=== PATIENT | female | born 1975 | race Caucasian/White ===

== ENCOUNTER 2019-03-15 21:53 | Observation (INO) ==
[2019-03-16] MEDS ORDERED: DEXTROSE 10% 250 ML BAG IV PRN (01:29)
[2019-03-16] MEDS ORDERED: GLUCAGON 1 MG VIAL IM PRN (01:29)
[2019-03-16] MEDS ORDERED: DEXTROSE 50% 25 GM/50 ML VIAL IV PRN (02:11)
[2019-03-16 03:01] LABS: INR 0.9; PT Patient Result 9.4 SECS (9.6-12.2); Partial Thromboplastin Time 23.8 SECS (20.8-36.0)
[2019-03-16] MEDS: NITROGLYCERIN SL 0.4 MG TABLET SL PRN ×2 (03:07→14:10)
[2019-03-16] MEDS: PROMETHAZINE 25 MG/1 ML VIAL IM PRN ×3 (03:07→20:44)
[2019-03-16 03:11] LABS: Troponin I < 0.015 NG/ML (0.00-0.045)
[2019-03-16 03:11] LABS: Albumin 3.4 G/DL (3.4-5.0); Bilirubin,Total 0.4 MG/DL (0.2-1.0); Osmolality,Calculated 279.4 MOS/KG (273-304); Risk Ratio 4.67; Total Protein 7.5 G/DL (6.4-8.3); VLDL CHOLESTEROL 42.4 MG/DL
[2019-03-16] MEDS: MORPHINE 4 MG/1 ML VIAL IV PRN ×3 (04:25→16:29)
[2019-03-16] MEDS: INSULIN LISPRO 100 UNIT/ML SUBCUT SCH (08:27)
[2019-03-16 08:52] LABS: Troponin I < 0.015 NG/ML (0.00-0.045)
[2019-03-16] MEDS ORDERED: CLOPIDOGREL 75 MG TABLET PO SCH (09:00)
[2019-03-16] MEDS ORDERED: ASPIRIN CHEW 81 MG TABLET PO SCH (09:00)
[2019-03-16] MEDS: ASPIRIN EC 81 MG TABLET PO SCH (09:09)
[2019-03-16] MEDS: COENZYME Q10 100 MG CAPSULE PO SCH (09:10)
[2019-03-16] MEDS: OMEGA 3 ACID ETHYL ESTERS 1 GM CAPSULE PO SCH ×2 (09:10→21:55)
[2019-03-16] MEDS: LEVOTHYROXINE 200 MCG TABLET PO SCH (09:12)
[2019-03-16] MEDS: SOTALOL 80 MG TABLET PO SCH ×2 (09:12→21:55)
[2019-03-16] MEDS: CLOPIDOGREL 75 MG TABLET PO SCH (09:13)
[2019-03-16] MEDS: FENOFIBRATE 160 MG TABLET PO SCH (09:13)
[2019-03-16] MEDS: SPIRONOLACTONE 25 MG TABLET PO SCH (09:13)
[2019-03-16] MEDS: PANTOPRAZOLE 40 MG TABLET PO SCH (09:14)
[2019-03-16 15:27] LABS: Barbiturates Screen,Urine Negative (Negative); Benzodiazepines Screen,Urine Negative (Negative); Cannabinoid Screen,Urine Negative (Negative); Opiate Screen,Urine Positive (Negative); Phencyclidine Screen,Urine Negative (Negative)
[2019-03-16 15:31] LABS: Troponin I < 0.015 NG/ML (0.00-0.045)
[2019-03-16] MEDS: FUROSEMIDE 40 MG/4 ML VIAL IV SCH (16:27)
[2019-03-16] MEDS: OSELTAMIVIR 75 MG CAPSULE PO SCH ×2 (16:27→21:55)
[2019-03-17] MEDS: MORPHINE 4 MG/1 ML VIAL IV PRN ×2 (00:45→09:23)
[2019-03-17 01:01] LABS: Troponin I < 0.015 NG/ML (0.00-0.045)
[2019-03-17 05:22] LABS: Basophils # 0.1 10*3/uL (0.0-0.2); Basophils % 0.6 % (0.0-0.8); Eosinophils # 0.4 10*3/uL (0.0-0.87); Eosinophils % 4.8 % (0.00-10.9); Hemoglobin 11.7 GM/DL (12.0-16.0); Immature Granulocytes % 0.2 %; Immature Granulocytes Absolute 0.02 #; Lymphocytes # 3.4 10*3/uL (1.4-4.0); Lymphocytes % 42.1 % (21.3-54.2); Mean Corpuscular HGB Conc 30.8 GM/DL (32-36); Mean Corpuscular Volume 82.3 FL (87-102); Mean Platelet Volume 9.9 FL (9.6-12.0); Monocytes % 11.7 % (1.7-12.7); NRBC # 0.02 10*3/uL; Neutrophils % 40.6 % (38.7-73.9); Platelet Count 552 T/CUMM (130-400); Red Blood Count 4.62 MC/CUMM (3.8-5.5); Red Cell Distribution Width 20.1 % (9.3-17.3); White Blood Count 8.2 T/CUMM (4-12)
[2019-03-17 05:37] LABS: Albumin 3.1 G/DL (3.4-5.0); Osmolality,Calculated 278.7 MOS/KG (273-304); Total Protein 7.1 G/DL (6.4-8.3)
[2019-03-17] MEDS: INSULIN LISPRO 100 UNIT/ML SUBCUT SCH ×2 (09:18→09:19)
[2019-03-17] MEDS: FUROSEMIDE 40 MG/4 ML VIAL IV SCH (09:19)
[2019-03-17] MEDS: SPIRONOLACTONE 25 MG TABLET PO SCH (09:21)
[2019-03-17] MEDS: SOTALOL 80 MG TABLET PO SCH (09:21)
[2019-03-17] MEDS: LEVOTHYROXINE 200 MCG TABLET PO SCH (09:21)
[2019-03-17] MEDS: COENZYME Q10 100 MG CAPSULE PO SCH (09:21)
[2019-03-17] MEDS: PANTOPRAZOLE 40 MG TABLET PO SCH (09:21)
[2019-03-17] MEDS: OSELTAMIVIR 75 MG CAPSULE PO SCH (09:21)
[2019-03-17] MEDS: FENOFIBRATE 160 MG TABLET PO SCH (09:21)
[2019-03-17] MEDS: CLOPIDOGREL 75 MG TABLET PO SCH (09:22)
[2019-03-17] MEDS: OMEGA 3 ACID ETHYL ESTERS 1 GM CAPSULE PO SCH (09:22)
[2019-03-17] MEDS: ASPIRIN EC 81 MG TABLET PO SCH (09:22)
[2019-03-17 12:00] VITALS: BP 110/67
== END 2019-03-17 14:30 | disposition home or self-care (01) ==
LOC: N.2W → SUATTDRO 03-16 00:02
PROVIDERS: ADMIT Internal Medicine; ATTEND Internal Medicine Cardiovascular Disease

== ENCOUNTER 2019-05-03 06:44 | Observation (INO) ==
[2019-05-03] MEDS ORDERED: ONDANSETRON 4 MG/2 ML VIAL IV STA (07:08)
[2019-05-03] MEDS ORDERED: NITROGLYCERIN 2% OINT 1 INCH/GM PACK TOP STA (07:08)
[2019-05-03] MEDS ORDERED: MORPHINE 4 MG/1 ML VIAL IV STA (07:08)
[2019-05-03] MEDS ORDERED: ASPIRIN 325 MG TABLET PO STA (07:08)
[2019-05-03 09:10] LABS: Basophils # 0.1 10*3/uL (0.0-0.2); Basophils % 0.8 % (0.0-0.8); Eosinophils # 0.4 10*3/uL (0.0-0.87); Eosinophils % 3.9 % (0.00-10.9); Hematocrit 35.3 VOL% (35.7-47.0); Hemoglobin 10.8 GM/DL (12.0-16.0); Immature Granulocytes % 0.7 %; Immature Granulocytes Absolute 0.08 #; Lymphocytes # 3.6 10*3/uL (1.4-4.0); Mean Corpuscular HGB Conc 30.6 GM/DL (32-36); Mean Corpuscular Volume 83.3 FL (87-102); Mean Platelet Volume 9.9 FL (9.6-12.0); Monocytes % 12.9 % (1.7-12.7); NRBC # 0.06 10*3/uL; Neutrophils % 49.7 % (38.7-73.9); Platelet Count 601 T/CUMM (130-400); Red Blood Count 4.24 MC/CUMM (3.8-5.5); Red Cell Distribution Width 19.3 % (9.3-17.3); White Blood Count 11.1 T/CUMM (4-12)
[2019-05-03 09:23] LABS: PT Patient Result 11.3 SECS (9.6-12.2); Partial Thromboplastin Time 27.6 SECS (20.8-36.0)
[2019-05-03 09:24] LABS: Alanine Aminotransferase 24 U/L (13-56); Albumin 3.4 G/DL (3.4-5.0); Alkaline Phosphatase 117 U/L (45-117); Aspartate Amino Transferase 19 U/L (0-37); Bilirubin,Total < 0.39 MG/DL (0.2-1.0); Blood Urea Nitrogen 20 MG/DL (7-18); Calcium 9.1 MG/DL (8.5-10.1); Estimated Glom Filtration Rate 85 ML/MIN; Glucose 94 MG/DL (74-106); Total Protein 7.3 G/DL (6.4-8.3)
[2019-05-03] MEDS ORDERED: POTASSIUM CHLORIDE 20 MEQ TABLET PO STA (09:32)
[2019-05-03] MEDS ORDERED: POTASSIUM CHLORIDE 20 MEQ TABLET PO ONE ×2 (09:33→10:05)
[2019-05-03] MEDS ORDERED: DEXTROSE 10% 250 ML BAG IV PRN (10:00)
[2019-05-03] MEDS ORDERED: GLUCAGON 1 MG VIAL IM PRN (10:00)
[2019-05-03] MEDS ORDERED: BISACODYL 5 MG TABLET PO PRN (10:00)
[2019-05-03] MEDS: SUCRALFATE 1 GM TABLET PO SCH ×3 (12:11→20:26)
[2019-05-03] MEDS: INSULIN LISPRO 100 UNIT/ML SUBCUT SCH ×3 (12:13→20:27)
[2019-05-03] MEDS: NITROGLYCERIN SL 0.4 MG TABLET SL PRN ×5 (12:29→21:56)
[2019-05-03 13:04] LABS: Risk Ratio 5.02; VLDL CHOLESTEROL 58.2 MG/DL
[2019-05-03 13:17] LABS: Barbiturates Screen,Urine Negative (Negative); Benzodiazepines Screen,Urine Positive (Negative); Cannabinoid Screen,Urine Negative (Negative); Opiate Screen,Urine Positive (Negative); Phencyclidine Screen,Urine Negative (Negative)
[2019-05-03] MEDS: ONDANSETRON 4 MG/2 ML VIAL IV PRN ×2 (14:59→21:44)
[2019-05-03 15:02] LABS: Troponin I < 0.015 NG/ML (0.00-0.045)
[2019-05-03] MEDS ORDERED: MORPHINE 4 MG/1 ML VIAL IV ONE (15:16)
[2019-05-03] MEDS ORDERED: WARFARIN 5 MG TABLET PO SCH (18:00)
[2019-05-03] MEDS ORDERED: diphenhydrAMINE CAP 25 MG CAPSULE PO PRN (20:10)
[2019-05-03] MEDS: OMEGA 3 ACID ETHYL ESTERS 1 GM CAPSULE PO SCH (20:25)
[2019-05-03] MEDS: SOTALOL 80 MG TABLET PO SCH (20:26)
[2019-05-03] MEDS: DIVALPROEX 500 MG TABLET PO SCH (20:26)
[2019-05-03] MEDS: PANTOPRAZOLE 40 MG TABLET PO SCH (20:26)
[2019-05-03] MEDS: RANOLAZINE 500 MG TABLET PO SCH (20:26)
[2019-05-03] MEDS ORDERED: METOPROLOL TARTRATE 25 MG TABLET PO SCH (21:00)
[2019-05-04] MEDS: NITROGLYCERIN SL 0.4 MG TABLET SL PRN ×2 (01:45→02:09)
[2019-05-04] MEDS: ONDANSETRON 4 MG/2 ML VIAL IV PRN (05:07)
[2019-05-04] MEDS ORDERED: ACETAMINOPHEN 500 MG TABLET PO PRN (05:23)
[2019-05-04] MEDS: DIVALPROEX 500 MG TABLET PO SCH (08:50)
[2019-05-04] MEDS: RANOLAZINE 500 MG TABLET PO SCH (08:50)
[2019-05-04] MEDS: SUCRALFATE 1 GM TABLET PO SCH ×2 (08:51→12:00)
[2019-05-04] MEDS: OMEGA 3 ACID ETHYL ESTERS 1 GM CAPSULE PO SCH (08:51)
[2019-05-04] MEDS: SOTALOL 80 MG TABLET PO SCH (08:51)
[2019-05-04] MEDS: PANTOPRAZOLE 40 MG TABLET PO SCH (08:54)
[2019-05-04] MEDS: INSULIN LISPRO 100 UNIT/ML SUBCUT SCH ×2 (08:55→11:57)
[2019-05-04] MEDS ORDERED: FENOFIBRATE 145 MG TABLET PO SCH (09:00)
[2019-05-04] MEDS ORDERED: LEVOTHYROXINE 200 MCG TABLET PO SCH (09:00)
[2019-05-04] MEDS ORDERED: ASPIRIN EC 81 MG TABLET PO SCH (09:00)
[2019-05-04] MEDS ORDERED: CLOPIDOGREL 75 MG TABLET PO SCH (09:00)
[2019-05-04] MEDS ORDERED: SPIRONOLACTONE 25 MG TABLET PO SCH (09:00)
[2019-05-04] MEDS ORDERED: PANTOPRAZOLE 40 MG TABLET PO SCH (09:00)
[2019-05-04 11:42] VITALS: BP 122/78
[2019-05-04] MEDS ORDERED: ISOSORBIDE MONONITRATE 30 MG TABLET PO SCH (14:36)
== END 2019-05-04 13:30 | disposition home or self-care (01) ==
LOC: N.ED 06:44 → N.EDINP 06:44 → SUATTDRO 10:00 → N.4E 10:51
PROVIDERS: ADMIT Internal Medicine; ATTEND Internal Medicine

== ENCOUNTER 2019-08-08 19:29 | Inpatient (IN) ==
[2019-08-08] MEDS: NITROGLYCERIN SL 0.4 MG TABLET SL PRN ×3 (20:24→20:59)
[2019-08-08 20:37] LABS: Basophils % 0.3 % (0.0-0.8); Eosinophils % 0.1 % (0.00-10.9); Hematocrit 34.7 VOL% (35.7-47.0); Hemoglobin 10.1 GM/DL (12.0-16.0); Immature Granulocytes % 0.9 %; Immature Granulocytes Absolute 0.14 #; Lymphocytes # 2.4 10*3/uL (1.4-4.0); Lymphocytes % 15.2 % (21.3-54.2); Mean Corpuscular HGB Conc 29.1 GM/DL (32-36); Mean Platelet Volume 9.7 FL (9.6-12.0); NRBC # 0.11 10*3/uL; Neutrophils % 78.5 % (38.7-73.9); Platelet Count 631 T/CUMM (130-400); Red Blood Count 4.39 MC/CUMM (3.8-5.5); Red Cell Distribution Width 20.9 % (9.3-17.3); White Blood Count 15.7 T/CUMM (4-12)
[2019-08-08 20:44] LABS: Alanine Aminotransferase 65 U/L (13-56); Albumin 3.7 G/DL (3.4-5.0); Alkaline Phosphatase 144 U/L (45-117); Aspartate Amino Transferase 65 U/L (0-37); Bilirubin,Total < 0.39 MG/DL (0.2-1.0); Blood Urea Nitrogen 18 MG/DL (7-18); Estimated Glom Filtration Rate 89 ML/MIN; Glucose 146 MG/DL (74-106); Osmolality,Calculated 274.1 MOS/KG (273-304); Total Protein 8.6 G/DL (6.4-8.3)
[2019-08-08 20:46] LABS: PT Patient Result 10.2 SECS (9.8-11.9)
[2019-08-08 22:53] LABS: Apearance,Urine CLEAR (Clear); Bilirubin,Urine Negative (Negative); Blood, Urine Negative (Negative); Glucose,Urine (UA) Negative (Negative); Ketones,Urine Negative (Negative); Nitrite,Urine Negative (Negative); Protein,Urine Negative; RBC,Urine <1 /HPF (0-4); Urine Color Colorless (Yellow); Urine Specific Gravity 1.005 (1.001-1.035); Urine Urobilinogen < 2.0 EU/DL (0.2-1.0)
[2019-08-08 23:01] LABS: Ferritin 14.7 ng/ml (8-252)
[2019-08-08] MEDS ORDERED: ONDANSETRON 4 MG/2 ML VIAL IV ONE (23:08)
[2019-08-09] MEDS ORDERED: FUROSEMIDE 40 MG/4 ML VIAL IV STA (00:07)
[2019-08-09] MEDS ORDERED: PIPERACILLIN/TAZOBACTAM 3,375 MG in SODIUM CHLORIDE 0.9% 100 ML IV STA (00:08)
[2019-08-09] MEDS ORDERED: NITROGLYCERIN 2% OINT 1 INCH/GM PACK TOP STA (00:09)
[2019-08-09] MEDS ORDERED: ACETAMINOPHEN 325 MG TABLET PO PRN (01:21)
[2019-08-09] MEDS ORDERED: DEXTROSE 10% 250 ML BAG IV PRN (01:21)
[2019-08-09] MEDS ORDERED: GLUCAGON 1 MG VIAL IM PRN (01:21)
[2019-08-09] MEDS ORDERED: DOCUSATE SODIUM 100 MG CAPSULE PO PRN (01:21)
[2019-08-09] MEDS: MORPHINE 4 MG/1 ML VIAL IV PRN ×4 (01:41→20:46)
[2019-08-09] MEDS: ENOXAPARIN 40 MG/0.4 ML SYRINGE SUBCUT SCH (01:41)
[2019-08-09] MEDS: VANCOMYCIN INJ 2,000 MG in SODIUM CHLORIDE 0.9% 500 ML IV SCH ×2 (02:02→15:22)
[2019-08-09] MEDS: ALBUTEROL INHALER 18 GM INH SCH ×4 (02:04→20:45)
[2019-08-09 04:20] LABS: Basophils # 0.1 10*3/uL (0.0-0.2); Basophils % 0.3 % (0.0-0.8); Eosinophils # 0.1 10*3/uL (0.0-0.87); Eosinophils % 0.3 % (0.00-10.9); Hematocrit 32.5 VOL% (35.7-47.0); Hemoglobin 9.5 GM/DL (12.0-16.0); Immature Granulocytes % 0.6 %; Immature Granulocytes Absolute 0.09 #; Lymphocytes # 3.4 10*3/uL (1.4-4.0); Lymphocytes % 22.4 % (21.3-54.2); Mean Corpuscular HGB Conc 29.2 GM/DL (32-36); Mean Corpuscular Volume 78.9 FL (87-102); Monocytes % 7.2 % (1.7-12.7); NRBC # 0.12 10*3/uL; Neutrophils % 69.2 % (38.7-73.9); Platelet Count 598 T/CUMM (130-400); Red Blood Count 4.12 MC/CUMM (3.8-5.5); Red Cell Distribution Width 19.9 % (9.3-17.3); White Blood Count 15.1 T/CUMM (4-12)
[2019-08-09 04:59] LABS: Albumin 3.6 G/DL (3.4-5.0); Bilirubin,Total 0.9 MG/DL (0.2-1.0); Calcium 8.6 MG/DL (8.5-10.1); Osmolality,Calculated 272.1 MOS/KG (273-304); Total Protein 8.1 G/DL (6.4-8.3)
[2019-08-09 05:49] LABS: Sedimentation Rate-Westergren 30 MM/HR (0-20)
[2019-08-09 06:57] LABS: % Iron Saturation 4.1 % (18-50)
[2019-08-09] MEDS: FUROSEMIDE 40 MG/4 ML VIAL IV SCH ×2 (08:01→16:55)
[2019-08-09] MEDS: INSULIN LISPRO 100 UNIT/ML SUBCUT SCH ×4 (08:01→20:02)
[2019-08-09] MEDS: PIPERACILLIN/TAZOBACTAM 3,375 MG in SODIUM CHLORIDE 0.9% 100 ML IV SCH ×2 (08:02→19:52)
[2019-08-09 12:19] LABS: Folate > 24.0 NG/ML (5.4-24.0); Vitamin B12 381 PG/ML (211-911)
[2019-08-09] MEDS: ZALEPLON 5 MG CAPSULE PO PRN (20:45)
[2019-08-10] MEDS: VANCOMYCIN INJ 2,000 MG in SODIUM CHLORIDE 0.9% 500 ML IV SCH (01:15)
[2019-08-10] MEDS: ALBUTEROL INHALER 18 GM INH SCH ×4 (01:16→20:55)
[2019-08-10] MEDS: MORPHINE 4 MG/1 ML VIAL IV PRN ×5 (01:47→20:55)
[2019-08-10] MEDS: ENOXAPARIN 40 MG/0.4 ML SYRINGE SUBCUT SCH (01:48)
[2019-08-10] MEDS: diphenhydrAMINE 50 MG/1 ML VIAL IV PRN ×2 (06:17→20:55)
[2019-08-10 07:21] LABS: Albumin 3.4 G/DL (3.4-5.0); Bilirubin,Total 0.4 MG/DL (0.2-1.0); Calcium 8.6 MG/DL (8.5-10.1); Osmolality,Calculated 281.4 MOS/KG (273-304); Total Protein 7.6 G/DL (6.4-8.3)
[2019-08-10 07:51] LABS: Basophils # 0.1 10*3/uL (0.0-0.2); Basophils % 0.6 % (0.0-0.8); Eosinophils # 0.5 10*3/uL (0.0-0.87); Hematocrit 33.2 VOL% (35.7-47.0); Hemoglobin 9.9 GM/DL (12.0-16.0); Immature Granulocytes % 0.5 %; Immature Granulocytes Absolute 0.06 #; Lymphocytes # 3.2 10*3/uL (1.4-4.0); Lymphocytes % 26.4 % (21.3-54.2); Mean Corpuscular HGB Conc 29.8 GM/DL (32-36); Mean Corpuscular Volume 78.5 FL (87-102); Mean Platelet Volume 9.9 FL (9.6-12.0); Monocytes % 9.6 % (1.7-12.7); NRBC # 0.17 10*3/uL; Neutrophils % 58.9 % (38.7-73.9); Platelet Count 584 T/CUMM (130-400); Red Blood Count 4.23 MC/CUMM (3.8-5.5); Red Cell Distribution Width 20.9 % (9.3-17.3)
[2019-08-10] MEDS: FUROSEMIDE 40 MG/4 ML VIAL IV SCH ×2 (08:27→16:43)
[2019-08-10] MEDS: POTASSIUM CHLORIDE 20 MEQ TABLET PO PRN ×4 (08:27→14:55)
[2019-08-10] MEDS: MULTIVITAMIN (BEROCCA) TABLET PO SCH (08:27)
[2019-08-10] MEDS: INSULIN LISPRO 100 UNIT/ML SUBCUT SCH ×4 (08:43→20:55)
[2019-08-10] MEDS: cefTRIAXone 2,000 MG in SYRINGE 1 EACH IV SCH (16:45)
[2019-08-10] MEDS: POTASSIUM CHLORIDE 10 MEQ TABLET PO SCH (20:55)
[2019-08-10] MEDS: PRAMIPEXOLE 0.25 MG TABLET PO SCH (22:07)
[2019-08-11] MEDS: ZALEPLON 5 MG CAPSULE PO PRN (00:45)
[2019-08-11] MEDS: ALBUTEROL INHALER 18 GM INH SCH ×4 (01:30→17:55)
[2019-08-11] MEDS: MORPHINE 4 MG/1 ML VIAL IV PRN ×4 (01:30→22:00)
[2019-08-11] MEDS: MULTIVITAMIN (BEROCCA) TABLET PO SCH (08:18)
[2019-08-11] MEDS: AZITHROMYCIN 250 MG TABLET PO SCH (08:18)
[2019-08-11] MEDS: POTASSIUM CHLORIDE 10 MEQ TABLET PO SCH ×2 (08:18→21:30)
[2019-08-11] MEDS: FUROSEMIDE 40 MG/4 ML VIAL IV SCH ×2 (08:19→16:37)
[2019-08-11] MEDS: ENOXAPARIN 40 MG/0.4 ML SYRINGE SUBCUT SCH (08:19)
[2019-08-11] MEDS: WARFARIN 5 MG TABLET PO SCH (08:21)
[2019-08-11] MEDS: INSULIN LISPRO 100 UNIT/ML SUBCUT SCH ×4 (11:54→21:30)
[2019-08-11] MEDS: diphenhydrAMINE 50 MG/1 ML VIAL IV PRN ×2 (12:19→21:57)
[2019-08-11] MEDS: cefTRIAXone 2,000 MG in SYRINGE 1 EACH IV SCH (12:19)
[2019-08-11] MEDS: PRAMIPEXOLE 0.25 MG TABLET PO SCH (21:30)
[2019-08-12] MEDS: ALBUTEROL INHALER 18 GM INH SCH ×4 (00:20→19:15)
[2019-08-12 06:22] LABS: INR 1.1; PT Patient Result 11.2 SECS (9.8-11.9)
[2019-08-12] MEDS: MORPHINE 4 MG/1 ML VIAL IV PRN ×2 (06:27→16:51)
[2019-08-12] MEDS: INSULIN LISPRO 100 UNIT/ML SUBCUT SCH ×4 (08:15→21:00)
[2019-08-12 08:33] LABS: Calcium 9.2 MG/DL (8.5-10.1); Osmolality,Calculated 270.1 MOS/KG (273-304)
[2019-08-12] MEDS: ENOXAPARIN 40 MG/0.4 ML SYRINGE SUBCUT SCH (11:38)
[2019-08-12] MEDS: MULTIVITAMIN (BEROCCA) TABLET PO SCH (11:38)
[2019-08-12] MEDS: AZITHROMYCIN 250 MG TABLET PO SCH (11:38)
[2019-08-12] MEDS: POTASSIUM CHLORIDE 10 MEQ TABLET PO SCH ×2 (11:38→21:00)
[2019-08-12] MEDS: WARFARIN 5 MG TABLET PO SCH (11:38)
[2019-08-12] MEDS: FUROSEMIDE 40 MG/4 ML VIAL IV SCH ×2 (13:34→17:42)
[2019-08-12] MEDS: cefTRIAXone 2,000 MG in SYRINGE 1 EACH IV SCH (13:35)
[2019-08-12] MEDS ORDERED: LEVOFLOXACIN INJ 750 MG in PREMIX 1 EACH IV SCH (15:00)
[2019-08-12] MEDS: LEVOFLOXACIN 750 MG TABLET PO SCH (18:47)
[2019-08-12] MEDS: PRAMIPEXOLE 0.25 MG TABLET PO SCH (21:00)
[2019-08-12] MEDS: ZALEPLON 5 MG CAPSULE PO PRN (21:00)
[2019-08-13] MEDS: ALBUTEROL INHALER 18 GM INH SCH ×4 (01:25→20:36)
[2019-08-13] MEDS ORDERED: MORPHINE 4 MG/1 ML VIAL IM ONE (04:40)
[2019-08-13 06:20] LABS: INR 1.2; PT Patient Result 12.4 SECS (9.8-11.9)
[2019-08-13] MEDS: FUROSEMIDE 40 MG/4 ML VIAL IV SCH ×2 (10:31→16:37)
[2019-08-13] MEDS: POTASSIUM CHLORIDE 10 MEQ TABLET PO SCH ×2 (10:32→20:37)
[2019-08-13] MEDS: ENOXAPARIN 40 MG/0.4 ML SYRINGE SUBCUT SCH (10:32)
[2019-08-13] MEDS: MULTIVITAMIN (BEROCCA) TABLET PO SCH (10:33)
[2019-08-13] MEDS: LEVOFLOXACIN 750 MG TABLET PO SCH (10:33)
[2019-08-13] MEDS: WARFARIN 5 MG TABLET PO SCH (10:34)
[2019-08-13] MEDS: INSULIN LISPRO 100 UNIT/ML SUBCUT SCH ×4 (10:34→20:50)
[2019-08-13] MEDS: ONDANSETRON 4 MG/2 ML VIAL IV PRN ×2 (12:54→20:44)
[2019-08-13] MEDS: NITROGLYCERIN SL 0.4 MG TABLET SL PRN ×3 (12:55→14:36)
[2019-08-13] MEDS ORDERED: NITROGLYCERIN SL 0.4 MG TABLET SL PRN (14:20)
[2019-08-13] MEDS: RANOLAZINE 500 MG TABLET PO SCH ×2 (14:44→20:36)
[2019-08-13] MEDS: SOTALOL 80 MG TABLET PO SCH ×2 (16:37→20:37)
[2019-08-13] MEDS: SUCRALFATE 1 GM TABLET PO SCH ×2 (16:37→20:41)
[2019-08-13] MEDS: SERTRALINE 50 MG TABLET PO SCH (20:36)
[2019-08-13] MEDS: PRAMIPEXOLE 0.25 MG TABLET PO SCH (20:36)
[2019-08-13] MEDS: MORPHINE 4 MG/1 ML VIAL IV PRN (20:41)
[2019-08-13] MEDS: diphenhydrAMINE 50 MG/1 ML VIAL IV PRN (20:47)
[2019-08-14] MEDS: ALBUTEROL INHALER 18 GM INH SCH ×4 (01:00→20:39)
[2019-08-14] MEDS: MORPHINE 4 MG/1 ML VIAL IV PRN ×3 (02:45→20:40)
[2019-08-14] MEDS: diphenhydrAMINE 50 MG/1 ML VIAL IV PRN ×2 (05:05→21:51)
[2019-08-14 05:59] LABS: INR 1.5; PT Patient Result 15.7 SECS (9.8-11.9)
[2019-08-14] MEDS: LEVOTHYROXINE 200 MCG TABLET PO SCH (06:22)
[2019-08-14] MEDS: LEVOTHYROXINE 25 MCG TABLET PO SCH (06:22)
[2019-08-14] MEDS: WARFARIN 5 MG TABLET PO SCH (10:00)
[2019-08-14] MEDS: SOTALOL 80 MG TABLET PO SCH ×2 (10:00→20:40)
[2019-08-14] MEDS: SUCRALFATE 1 GM TABLET PO SCH ×4 (10:00→20:39)
[2019-08-14] MEDS: FUROSEMIDE 40 MG/4 ML VIAL IV SCH ×2 (10:00→15:50)
[2019-08-14] MEDS: MULTIVITAMIN (BEROCCA) TABLET PO SCH (10:00)
[2019-08-14] MEDS: RANOLAZINE 500 MG TABLET PO SCH ×2 (10:00→20:40)
[2019-08-14] MEDS: LEVOFLOXACIN INJ 750 MG in PREMIX 1 EACH IV SCH (10:00)
[2019-08-14] MEDS: POTASSIUM CHLORIDE 10 MEQ TABLET PO SCH ×2 (10:00→20:40)
[2019-08-14] MEDS: DULoxetine 20 MG CAPSULE PO SCH (10:00)
[2019-08-14] MEDS: ENOXAPARIN 40 MG/0.4 ML SYRINGE SUBCUT SCH (10:00)
[2019-08-14] MEDS: INSULIN LISPRO 100 UNIT/ML SUBCUT SCH ×3 (11:50→20:46)
[2019-08-14] MEDS: ONDANSETRON 4 MG/2 ML VIAL IV PRN ×2 (12:46→20:43)
[2019-08-14] MEDS: SERTRALINE 50 MG TABLET PO SCH (20:39)
[2019-08-14] MEDS: PRAMIPEXOLE 0.25 MG TABLET PO SCH (20:39)
[2019-08-15] MEDS: ALBUTEROL INHALER 18 GM INH SCH ×4 (01:00→18:05)
[2019-08-15] MEDS: MORPHINE 4 MG/1 ML VIAL IV PRN ×2 (03:34→10:32)
[2019-08-15] MEDS: diphenhydrAMINE 50 MG/1 ML VIAL IV PRN ×2 (03:36→21:24)
[2019-08-15] MEDS: LEVOTHYROXINE 25 MCG TABLET PO SCH (06:29)
[2019-08-15] MEDS: LEVOTHYROXINE 200 MCG TABLET PO SCH (06:29)
[2019-08-15 06:31] LABS: INR 1.9; PT Patient Result 19.4 SECS (9.8-11.9)
[2019-08-15] MEDS: FUROSEMIDE 40 MG/4 ML VIAL IV SCH ×2 (10:17→15:45)
[2019-08-15] MEDS: POTASSIUM CHLORIDE 10 MEQ TABLET PO SCH ×2 (10:18→21:19)
[2019-08-15] MEDS: SOTALOL 80 MG TABLET PO SCH ×2 (10:18→21:19)
[2019-08-15] MEDS: RANOLAZINE 500 MG TABLET PO SCH ×2 (10:18→21:20)
[2019-08-15] MEDS: MULTIVITAMIN (BEROCCA) TABLET PO SCH (10:18)
[2019-08-15] MEDS: DULoxetine 20 MG CAPSULE PO SCH (10:18)
[2019-08-15] MEDS: ENOXAPARIN 40 MG/0.4 ML SYRINGE SUBCUT SCH (10:18)
[2019-08-15] MEDS: WARFARIN 5 MG TABLET PO SCH (10:19)
[2019-08-15] MEDS: LEVOFLOXACIN INJ 750 MG in PREMIX 1 EACH IV SCH (10:19)
[2019-08-15] MEDS: SUCRALFATE 1 GM TABLET PO SCH ×4 (10:19→21:19)
[2019-08-15] MEDS: INSULIN LISPRO 100 UNIT/ML SUBCUT SCH ×4 (10:21→21:19)
[2019-08-15] MEDS: ONDANSETRON 4 MG/2 ML VIAL IV PRN (10:32)
[2019-08-15] MEDS: PRAMIPEXOLE 0.25 MG TABLET PO SCH (21:19)
[2019-08-15] MEDS: SERTRALINE 50 MG TABLET PO SCH (21:20)
[2019-08-16] MEDS: ONDANSETRON 4 MG/2 ML VIAL IV PRN ×2 (00:28→10:08)
[2019-08-16] MEDS: MORPHINE 4 MG/1 ML VIAL IV PRN (00:43)
[2019-08-16] MEDS: ALBUTEROL INHALER 18 GM INH SCH ×2 (00:47→06:13)
[2019-08-16] MEDS: diphenhydrAMINE 50 MG/1 ML VIAL IV PRN (05:28)
[2019-08-16] MEDS: LEVOTHYROXINE 25 MCG TABLET PO SCH (06:13)
[2019-08-16] MEDS: LEVOTHYROXINE 200 MCG TABLET PO SCH (06:13)
[2019-08-16 07:16] LABS: Basophils # 0.1 10*3/uL (0.0-0.2); Basophils % 0.6 % (0.0-0.8); Eosinophils # 0.3 10*3/uL (0.0-0.87); Eosinophils % 2.9 % (0.00-10.9); Hemoglobin 10.5 GM/DL (12.0-16.0); Immature Granulocytes % 0.6 %; Immature Granulocytes Absolute 0.06 #; Lymphocytes # 2.7 10*3/uL (1.4-4.0); Lymphocytes % 25.2 % (21.3-54.2); Mean Corpuscular Volume 76.1 FL (87-102); Mean Platelet Volume 9.7 FL (9.6-12.0); Monocytes % 10.1 % (1.7-12.7); NRBC # 0.06 10*3/uL; Neutrophils % 60.6 % (38.7-73.9); Platelet Count 671 T/CUMM (130-400); Red Cell Distribution Width 20.6 % (9.3-17.3); White Blood Count 10.9 T/CUMM (4-12)
[2019-08-16 07:29] LABS: Calcium 9.6 MG/DL (8.5-10.1); Osmolality,Calculated 269.4 MOS/KG (273-304)
[2019-08-16 07:31] LABS: INR 2.4
[2019-08-16 07:32] LABS: PT Patient Result 24.5 SECS (9.8-11.9)
[2019-08-16] MEDS: POTASSIUM CHLORIDE 20 MEQ TABLET PO PRN ×3 (07:52→11:13)
[2019-08-16] MEDS: SUCRALFATE 1 GM TABLET PO SCH (07:53)
[2019-08-16] MEDS: INSULIN LISPRO 100 UNIT/ML SUBCUT SCH (08:02)
[2019-08-16] MEDS ORDERED: LEVOFLOXACIN 750 MG TABLET PO SCH (09:00)
[2019-08-16] MEDS: POTASSIUM CHLORIDE 10 MEQ TABLET PO SCH (09:21)
[2019-08-16] MEDS: DULoxetine 20 MG CAPSULE PO SCH (09:21)
[2019-08-16] MEDS: RANOLAZINE 500 MG TABLET PO SCH (09:21)
[2019-08-16] MEDS: SOTALOL 80 MG TABLET PO SCH (09:21)
[2019-08-16] MEDS: WARFARIN 5 MG TABLET PO SCH (09:21)
[2019-08-16] MEDS: MULTIVITAMIN (BEROCCA) TABLET PO SCH (09:21)
[2019-08-16] MEDS: ENOXAPARIN 40 MG/0.4 ML SYRINGE SUBCUT SCH (09:22)
[2019-08-16] MEDS: FUROSEMIDE 40 MG/4 ML VIAL IV SCH (09:22)
[2019-08-16] MEDS ORDERED: REGADENOSON 0.4 MG/5 ML SYRINGE IV ONE (09:39)
[2019-08-16 11:35] VITALS: BP 115/68
== END 2019-08-16 12:17 | disposition home or self-care (01) | DRG 291 ==
LOC: N.ED 19:29 → SUATTDRO 08-09 00:29 → N.EDINP 08-09 00:29 → N.2E 08-09 05:21 → N.3E 08-13 00:42
PROVIDERS: ADMIT Emergency Medicine; ATTEND Internal Medicine

== ENCOUNTER 2019-09-01 22:09 | Inpatient (IN) ==
[2019-09-01 22:42] LABS: Basophils % 0.1 % (0.0-0.8); Hemoglobin 9.7 GM/DL (12.0-16.0); Immature Granulocytes % 0.7 %; Immature Granulocytes Absolute 0.12 #; Lymphocytes # 2.8 10*3/uL (1.4-4.0); Lymphocytes % 17.1 % (21.3-54.2); Mean Corpuscular HGB Conc 29.4 GM/DL (32-36); Mean Corpuscular Volume 79.1 FL (87-102); Mean Platelet Volume 9.7 FL (9.6-12.0); Monocytes % 10.3 % (1.7-12.7); NRBC # 0.13 10*3/uL; Neutrophils % 71.8 % (38.7-73.9); Platelet Count 545 T/CUMM (130-400); Red Blood Count 4.17 MC/CUMM (3.8-5.5); Red Cell Distribution Width 21.7 % (9.3-17.3)
[2019-09-01 23:08] LABS: Albumin 3.4 G/DL (3.4-5.0); Bilirubin,Total 0.4 MG/DL (0.2-1.0); Calcium 8.8 MG/DL (8.5-10.1); Osmolality,Calculated 278.8 MOS/KG (273-304); Total Protein 7.5 G/DL (6.4-8.3)
[2019-09-02 00:19] LABS: INR 0.9; PT Patient Result 9.8 SECS (9.8-11.9)
[2019-09-02] MEDS ORDERED: FUROSEMIDE 100 MG/10 ML VIAL IV STA (00:21)
[2019-09-02] MEDS ORDERED: NITROGLYCERIN SL 0.4 MG TABLET SL ONE (00:23)
[2019-09-02] MEDS: NITROGLYCERIN SL 0.4 MG TABLET SL PRN ×6 (00:42→22:42)
[2019-09-02] MEDS ORDERED: SODIUM CHLORIDE 0.9% 500 ML IV STA (02:14)
[2019-09-02 02:32] LABS: Apearance,Urine Slightly Hazy (Clear); Bacteria,Urine Occasional /HPF (Few); Bilirubin,Urine Negative (Negative); Blood, Urine Negative (Negative); Glucose,Urine (UA) Negative (Negative); Hyaline Casts,Urine 3 /LPF (0-3); Ketones,Urine Negative (Negative); Nitrite,Urine Negative (Negative); Protein,Urine Negative; RBC,Urine <1 /HPF (0-4); Squamous Epithelial Cell,Urine Occasional /HPF (0-10); Urine Color Straw (Yellow); Urine Specific Gravity 1.006 (1.001-1.035); Urine Urobilinogen < 2.0 EU/DL (0.2-1.0); WBC,Urine <1 /HPF (0-6)
[2019-09-02] MEDS ORDERED: ACETAMINOPHEN 325 MG TABLET PO PRN (02:38)
[2019-09-02] MEDS ORDERED: hydrALAZINE 20 MG/1 ML VIAL IV PRN (02:38)
[2019-09-02] MEDS ORDERED: DEXTROSE 50% 25 GM/50 ML VIAL IV PRN (02:38)
[2019-09-02] MEDS ORDERED: GLUCAGON 1 MG VIAL IM PRN (02:38)
[2019-09-02] MEDS ORDERED: guaiFENesin/DM ER 600-30 MG TABLET PO PRN (02:38)
[2019-09-02] MEDS ORDERED: NICOTINE 21 MG/24 HR PATCH TRANSDERM PRN (02:38)
[2019-09-02] MEDS ORDERED: VANCOMYCIN INJ 2,000 MG in SODIUM CHLORIDE 0.9% 500 ML IV SCH (04:00)
[2019-09-02] MEDS: VANCOMYCIN INJ 1,750 MG in SODIUM CHLORIDE 0.9% 500 ML IV SCH ×2 (04:27→19:55)
[2019-09-02] MEDS: ONDANSETRON 4 MG/2 ML VIAL IV PRN ×2 (04:31→12:41)
[2019-09-02] MEDS: MORPHINE 4 MG/1 ML VIAL IV PRN ×2 (04:43→16:55)
[2019-09-02] MEDS: PIPERACILLIN/TAZOBACTAM 3,375 MG in SODIUM CHLORIDE 0.9% 100 ML IV SCH ×2 (07:46→15:23)
[2019-09-02] MEDS ORDERED: FUROSEMIDE 20 MG TABLET PO PRN (08:22)
[2019-09-02] MEDS ORDERED: ACETAMINOPHEN 500 MG TABLET PO PRN (08:22)
[2019-09-02] MEDS ORDERED: metOLazone 5 MG TABLET PO PRN (08:22)
[2019-09-02] MEDS ORDERED: FUROSEMIDE 40 MG/4 ML VIAL IV SCH (09:00)
[2019-09-02] MEDS: FUROSEMIDE 40 MG/4 ML VIAL IV SCH ×2 (09:45→21:44)
[2019-09-02] MEDS: PANTOPRAZOLE 40 MG TABLET PO SCH ×2 (09:45→21:45)
[2019-09-02] MEDS ORDERED: ALBUTEROL/IPRATROPIUM 3 ML NEB RESP TX PRN (11:05)
[2019-09-02 11:16] LABS: Barbiturates Screen,Urine Negative (Negative); Benzodiazepines Screen,Urine Negative (Negative); Cannabinoid Screen,Urine Negative (Negative); Opiate Screen,Urine Negative (Negative); Phencyclidine Screen,Urine Negative (Negative)
[2019-09-02] MEDS ORDERED: ALPRAZolam 0.5 MG TABLET PO ONE (11:16)
[2019-09-02] MEDS: BUMETANIDE 1 MG TABLET PO SCH ×2 (11:20→21:47)
[2019-09-02] MEDS: LEVOTHYROXINE 200 MCG TABLET PO SCH (11:20)
[2019-09-02] MEDS: SPIRONOLACTONE 25 MG TABLET PO SCH (11:20)
[2019-09-02] MEDS: ASPIRIN EC 81 MG TABLET PO SCH (11:20)
[2019-09-02] MEDS: DULoxetine 20 MG CAPSULE PO SCH (11:20)
[2019-09-02] MEDS: RANOLAZINE 500 MG TABLET PO SCH ×2 (11:20→21:46)
[2019-09-02] MEDS: LEVOTHYROXINE 25 MCG TABLET PO SCH (11:20)
[2019-09-02 11:27] LABS: Calcium 8.8 MG/DL (8.5-10.1); Osmolality,Calculated 282.3 MOS/KG (273-304)
[2019-09-02] MEDS: SUCRALFATE 1 GM TABLET PO SCH ×3 (11:28→21:46)
[2019-09-02 11:44] LABS: Basophils % 0.3 % (0.0-0.8); Eosinophils # 0.1 10*3/uL (0.0-0.87); Eosinophils % 0.3 % (0.00-10.9); Hematocrit 33.5 VOL% (35.7-47.0); Hemoglobin 9.9 GM/DL (12.0-16.0); Immature Granulocytes % 0.6 %; Immature Granulocytes Absolute 0.09 #; Lymphocytes # 2.9 10*3/uL (1.4-4.0); Lymphocytes % 18.7 % (21.3-54.2); Mean Corpuscular HGB Conc 29.6 GM/DL (32-36); Mean Corpuscular Volume 77.2 FL (87-102); Mean Platelet Volume 9.9 FL (9.6-12.0); Monocytes % 10.8 % (1.7-12.7); NRBC # 0.21 10*3/uL; Neutrophils % 69.3 % (38.7-73.9); Platelet Count 532 T/CUMM (130-400); Red Blood Count 4.34 MC/CUMM (3.8-5.5); Red Cell Distribution Width 21.6 % (9.3-17.3); White Blood Count 15.5 T/CUMM (4-12)
[2019-09-02] MEDS: POTASSIUM CHLORIDE 20 MEQ/15 ML UDCUP PO SCH (12:20)
[2019-09-02] MEDS: SOTALOL 80 MG TABLET PO SCH ×2 (12:20→21:44)
[2019-09-02] MEDS ORDERED: POTASSIUM CHLORIDE 20 MEQ TABLET PO ONE (13:30)
[2019-09-02] MEDS ORDERED: PIPERACILLIN/TAZOBACTAM 3,375 MG VIAL IV ONE (15:21)
[2019-09-02] MEDS ORDERED: SODIUM CHLORIDE 0.9% 100 ML IV ONE (15:22)
[2019-09-02] MEDS: SERTRALINE 50 MG TABLET PO SCH ×2 (16:54→21:44)
[2019-09-02] MEDS: APIXABAN 2.5 MG TABLET PO SCH ×2 (16:55→21:45)
[2019-09-02] MEDS: busPIRone 5 MG TABLET PO SCH ×2 (16:55→21:46)
[2019-09-02] MEDS ORDERED: diphenhydrAMINE CAP 25 MG CAPSULE PO PRN (17:40)
[2019-09-02] MEDS ORDERED: WARFARIN 5 MG TABLET PO SCH (18:00)
[2019-09-02] MEDS ORDERED: PRAMIPEXOLE 1 MG TABLET PO SCH (21:00)
[2019-09-02] MEDS ORDERED: diphenhydrAMINE 50 MG/1 ML VIAL IV SCH (22:00)
[2019-09-03] MEDS: PIPERACILLIN/TAZOBACTAM 3,375 MG in SODIUM CHLORIDE 0.9% 100 ML IV SCH ×2 (01:03→09:41)
[2019-09-03] MEDS: MORPHINE 4 MG/1 ML VIAL IV PRN ×2 (01:56→06:43)
[2019-09-03] MEDS ORDERED: diphenhydrAMINE 50 MG/1 ML VIAL IV SCH (06:00)
[2019-09-03] MEDS: VANCOMYCIN INJ 1,750 MG in SODIUM CHLORIDE 0.9% 500 ML IV SCH (06:43)
[2019-09-03 07:04] LABS: Basophils % 0.4 % (0.0-0.8); Eosinophils # 0.2 10*3/uL (0.0-0.87); Eosinophils % 1.8 % (0.00-10.9); Hematocrit 30.8 VOL% (35.7-47.0); Immature Granulocytes % 1.1 %; Immature Granulocytes Absolute 0.12 #; Lymphocytes # 3.1 10*3/uL (1.4-4.0); Lymphocytes % 27.7 % (21.3-54.2); Mean Corpuscular HGB Conc 29.2 GM/DL (32-36); Mean Corpuscular Volume 78.8 FL (87-102); Mean Platelet Volume 9.6 FL (9.6-12.0); Monocytes % 11.3 % (1.7-12.7); Neutrophils % 57.7 % (38.7-73.9); Platelet Count 502 T/CUMM (130-400); Red Blood Count 3.91 MC/CUMM (3.8-5.5); Red Cell Distribution Width 21.1 % (9.3-17.3); White Blood Count 11.2 T/CUMM (4-12)
[2019-09-03 07:29] LABS: Calcium 8.4 MG/DL (8.5-10.1); Osmolality,Calculated 278.7 MOS/KG (273-304); Total Protein 6.9 G/DL (6.4-8.3)
[2019-09-03 07:59] VITALS: BP 119/73
[2019-09-03] MEDS: SOTALOL 80 MG TABLET PO SCH (09:32)
[2019-09-03] MEDS: BUMETANIDE 1 MG TABLET PO SCH (09:33)
[2019-09-03] MEDS: PANTOPRAZOLE 40 MG TABLET PO SCH (09:33)
[2019-09-03] MEDS: DULoxetine 20 MG CAPSULE PO SCH (09:33)
[2019-09-03] MEDS: SERTRALINE 50 MG TABLET PO SCH (09:33)
[2019-09-03] MEDS: ASPIRIN EC 81 MG TABLET PO SCH (09:34)
[2019-09-03] MEDS: RANOLAZINE 500 MG TABLET PO SCH (09:34)
[2019-09-03] MEDS: SUCRALFATE 1 GM TABLET PO SCH ×2 (09:34→11:57)
[2019-09-03] MEDS: SPIRONOLACTONE 25 MG TABLET PO SCH (09:34)
[2019-09-03] MEDS: LEVOTHYROXINE 25 MCG TABLET PO SCH (09:34)
[2019-09-03] MEDS: busPIRone 5 MG TABLET PO SCH (09:34)
[2019-09-03] MEDS: APIXABAN 2.5 MG TABLET PO SCH (09:35)
[2019-09-03] MEDS: POTASSIUM CHLORIDE 20 MEQ/15 ML UDCUP PO SCH (09:35)
[2019-09-03] MEDS: FUROSEMIDE 40 MG/4 ML VIAL IV SCH (09:36)
[2019-09-03] MEDS: LEVOTHYROXINE 200 MCG TABLET PO SCH (09:40)
== END 2019-09-03 12:13 | disposition home or self-care (01) | DRG 291 ==
LOC: N.ED 22:09 → N.EDINP 09-02 02:40 → N.TELES 09-02 15:45
PROVIDERS: ADMIT Hospitalist; ATTEND Hospitalist

== ENCOUNTER 2019-09-05 15:50 | Observation (INO) ==
[2019-09-05 17:06] LABS: Apearance,Urine CLEAR (Clear); Bilirubin,Urine Negative (Negative); Blood, Urine Negative (Negative); Glucose,Urine (UA) Negative (Negative); Ketones,Urine Negative (Negative); Nitrite,Urine Negative (Negative); Protein,Urine Negative; RBC,Urine <1 /HPF (0-4); Squamous Epithelial Cell,Urine Occasional /HPF (0-10); Urine Color Colorless (Yellow); Urine Specific Gravity 1.005 (1.001-1.035); Urine Urobilinogen < 2.0 EU/DL (0.2-1.0); WBC,Urine 1 /HPF (0-6)
[2019-09-05 17:58] LABS: Basophils # 0.1 10*3/uL (0.0-0.2); Basophils % 0.4 % (0.0-0.8); Eosinophils # 0.2 10*3/uL (0.0-0.87); Eosinophils % 1.2 % (0.00-10.9); Hematocrit 31.6 VOL% (35.7-47.0); Hemoglobin 9.3 GM/DL (12.0-16.0); Immature Granulocytes % 0.7 %; Immature Granulocytes Absolute 0.09 #; Lymphocytes # 3.1 10*3/uL (1.4-4.0); Lymphocytes % 22.8 % (21.3-54.2); Mean Corpuscular HGB Conc 29.4 GM/DL (32-36); Mean Corpuscular Volume 77.1 FL (87-102); Mean Platelet Volume 9.4 FL (9.6-12.0); Monocytes % 8.9 % (1.7-12.7); NRBC # 0.54 10*3/uL; Platelet Count 518 T/CUMM (130-400); Red Cell Distribution Width 21.2 % (9.3-17.3); White Blood Count 13.6 T/CUMM (4-12)
[2019-09-05 18:23] LABS: Albumin 3.3 G/DL (3.4-5.0); Bilirubin,Total 0.8 MG/DL (0.2-1.0); Calcium 8.9 MG/DL (8.5-10.1); Osmolality,Calculated 275.8 MOS/KG (273-304); Total Protein 7.2 G/DL (6.4-8.3)
[2019-09-05 18:24] LABS: Ferritin 15.3 ng/ml (8-252)
[2019-09-05] MEDS ORDERED: FUROSEMIDE 40 MG/4 ML VIAL IV STA (18:43)
[2019-09-05 19:06] LABS: INR 1.2; PT Patient Result 12.7 SECS (9.8-11.9)
[2019-09-05] MEDS ORDERED: FUROSEMIDE 20 MG/2 ML VIAL IV STA (21:19)
[2019-09-05] MEDS ORDERED: DEXTROSE 10% 250 ML BAG IV PRN (21:21)
[2019-09-05] MEDS ORDERED: ACETAMINOPHEN 325 MG TABLET PO PRN (21:21)
[2019-09-05] MEDS ORDERED: GLUCAGON 1 MG VIAL IM PRN (21:21)
[2019-09-05] MEDS ORDERED: ONDANSETRON 4 MG/2 ML VIAL IV PRN (21:21)
[2019-09-05] MEDS ORDERED: MAGNESIUM SULF RIDER 4 GM in PREMIX 1 EACH IV PRN (22:03)
[2019-09-05] MEDS ORDERED: MAGNESIUM SULF RIDER 2 GM in PREMIX 1 EACH IV PRN (22:03)
[2019-09-05] MEDS ORDERED: POTASSIUM CHLORIDE 20 MEQ TABLET PO PRN (22:03)
[2019-09-05] MEDS ORDERED: POTASSIUM CHLORIDE 20 MEQ TABLET PO STA ×2 (22:04→22:13)
[2019-09-05] MEDS ORDERED: NITROGLYCERIN SL 0.4 MG TABLET SL PRN (22:05)
[2019-09-05] MEDS: PANTOPRAZOLE 40 MG TABLET PO SCH (23:10)
[2019-09-05] MEDS: SOTALOL 80 MG TABLET PO SCH (23:13)
[2019-09-06] MEDS: PIPERACILLIN/TAZOBACTAM 3,375 MG in SODIUM CHLORIDE 0.9% 100 ML IV SCH ×3 (00:12→20:47)
[2019-09-06] MEDS ORDERED: diphenhydrAMINE CAP 25 MG CAPSULE PO PRN (05:15)
[2019-09-06 05:35] LABS: Calcium 9.6 MG/DL (8.5-10.1); Osmolality,Calculated 267.4 MOS/KG (273-304)
[2019-09-06 06:42] LABS: Basophils # 0.1 10*3/uL (0.0-0.2); Basophils % 0.4 % (0.0-0.8); Eosinophils # 0.3 10*3/uL (0.0-0.87); Eosinophils % 1.8 % (0.00-10.9); Hematocrit 34.2 VOL% (35.7-47.0); Hemoglobin 10.1 GM/DL (12.0-16.0); Immature Granulocytes % 0.6 %; Immature Granulocytes Absolute 0.08 #; Lymphocytes # 2.8 10*3/uL (1.4-4.0); Lymphocytes % 20.8 % (21.3-54.2); Mean Corpuscular HGB Conc 29.5 GM/DL (32-36); Mean Platelet Volume 9.9 FL (9.6-12.0); Monocytes % 8.8 % (1.7-12.7); NRBC # 0.58 10*3/uL; Neutrophils % 67.6 % (38.7-73.9); Platelet Count 568 T/CUMM (130-400); Red Blood Count 4.44 MC/CUMM (3.8-5.5); Red Cell Distribution Width 21.1 % (9.3-17.3); White Blood Count 13.6 T/CUMM (4-12)
[2019-09-06] MEDS ORDERED: POTASSIUM CHLORIDE 20 MEQ TABLET PO STA (07:44)
[2019-09-06] MEDS: LEVOTHYROXINE 25 MCG TABLET PO SCH (09:29)
[2019-09-06] MEDS: SUCRALFATE 1 GM TABLET PO SCH ×4 (09:29→20:50)
[2019-09-06] MEDS: APIXABAN 2.5 MG TABLET PO SCH ×2 (09:31→20:49)
[2019-09-06] MEDS: SPIRONOLACTONE 25 MG TABLET PO SCH (09:31)
[2019-09-06] MEDS: busPIRone 5 MG TABLET PO SCH ×3 (09:31→20:49)
[2019-09-06] MEDS: SERTRALINE 25 MG TABLET PO SCH ×2 (09:32→20:49)
[2019-09-06] MEDS: RANOLAZINE 500 MG TABLET PO SCH ×2 (09:32→20:50)
[2019-09-06] MEDS: LEVOTHYROXINE 200 MCG TABLET PO SCH (09:33)
[2019-09-06] MEDS: INSULIN LISPRO 100 UNIT/ML SUBCUT SCH ×3 (11:39→20:48)
[2019-09-06] MEDS: SOTALOL 80 MG TABLET PO SCH ×2 (11:49→20:50)
[2019-09-06] MEDS: POTASSIUM CHLORIDE 20 MEQ TABLET PO SCH ×3 (11:49→20:50)
[2019-09-06] MEDS: FUROSEMIDE 40 MG/4 ML VIAL IV SCH ×2 (11:49→16:45)
[2019-09-06] MEDS: ASPIRIN EC 81 MG TABLET PO SCH (11:49)
[2019-09-06] MEDS: PANTOPRAZOLE 40 MG TABLET PO SCH ×2 (11:49→20:49)
[2019-09-06] MEDS: GABAPENTIN 300 MG CAPSULE PO SCH ×2 (15:50→20:49)
[2019-09-06] MEDS: ALBUTEROL INHALER 18 GM INH SCH (20:00)
[2019-09-06] MEDS ORDERED: PRAMIPEXOLE 1 MG TABLET PO SCH (21:00)
[2019-09-07] MEDS: ALBUTEROL INHALER 18 GM INH SCH ×2 (01:02→06:00)
[2019-09-07] MEDS: LEVOTHYROXINE 200 MCG TABLET PO SCH (05:31)
[2019-09-07] MEDS: LEVOTHYROXINE 25 MCG TABLET PO SCH (05:31)
[2019-09-07] MEDS: PIPERACILLIN/TAZOBACTAM 3,375 MG in SODIUM CHLORIDE 0.9% 100 ML IV SCH (05:35)
[2019-09-07 06:32] LABS: Osmolality,Calculated 272.2 MOS/KG (273-304)
[2019-09-07] MEDS: INSULIN LISPRO 100 UNIT/ML SUBCUT SCH (07:21)
[2019-09-07] MEDS: RANOLAZINE 500 MG TABLET PO SCH (08:27)
[2019-09-07] MEDS: POTASSIUM CHLORIDE 20 MEQ TABLET PO SCH (08:27)
[2019-09-07] MEDS: GABAPENTIN 300 MG CAPSULE PO SCH (08:27)
[2019-09-07] MEDS: SERTRALINE 25 MG TABLET PO SCH (08:27)
[2019-09-07] MEDS: ASPIRIN EC 81 MG TABLET PO SCH (08:27)
[2019-09-07] MEDS: busPIRone 5 MG TABLET PO SCH (08:27)
[2019-09-07] MEDS: SOTALOL 80 MG TABLET PO SCH (08:28)
[2019-09-07] MEDS: APIXABAN 2.5 MG TABLET PO SCH (08:28)
[2019-09-07] MEDS: SPIRONOLACTONE 25 MG TABLET PO SCH (08:29)
[2019-09-07] MEDS: FUROSEMIDE 40 MG/4 ML VIAL IV SCH ×2 (08:29→10:10)
[2019-09-07] MEDS: PANTOPRAZOLE 40 MG TABLET PO SCH (08:29)
[2019-09-07] MEDS: SUCRALFATE 1 GM TABLET PO SCH ×2 (08:29→11:46)
[2019-09-07 08:56] VITALS: BP 126/59
[2019-09-07 10:14] LABS: Basophils # 0.1 10*3/uL (0.0-0.2); Basophils % 0.5 % (0.0-0.8); Eosinophils # 0.4 10*3/uL (0.0-0.87); Eosinophils % 3.1 % (0.00-10.9); Hematocrit 33.3 VOL% (35.7-47.0); Hemoglobin 10.1 GM/DL (12.0-16.0); Immature Granulocytes % 0.7 %; Immature Granulocytes Absolute 0.09 #; Lymphocytes # 2.8 10*3/uL (1.4-4.0); Lymphocytes % 22.7 % (21.3-54.2); Mean Corpuscular HGB Conc 30.3 GM/DL (32-36); Mean Corpuscular Volume 76.2 FL (87-102); Mean Platelet Volume 10.1 FL (9.6-12.0); Monocytes % 10.3 % (1.7-12.7); NRBC # 0.63 10*3/uL; Neutrophils % 62.7 % (38.7-73.9); Platelet Count 554 T/CUMM (130-400); Red Blood Count 4.37 MC/CUMM (3.8-5.5); Red Cell Distribution Width 21.3 % (9.3-17.3); White Blood Count 12.4 T/CUMM (4-12)
== END 2019-09-07 13:24 | disposition home or self-care (01) ==
LOC: N.EDINP 15:50 → N.ED 15:50 → N.2E 09-06 08:36
PROVIDERS: ADMIT Internal Medicine; ATTEND Internal Medicine

== ENCOUNTER 2020-01-08 15:08 | Observation (INO) ==
[2020-01-08 16:10] LABS: Albumin 3.6 G/DL (3.4-5.0); Bilirubin,Total 0.4 MG/DL (0.2-1.0); Calcium 9.4 MG/DL (8.5-10.1)
[2020-01-08] MEDS ORDERED: FUROSEMIDE 100 MG/10 ML VIAL IV STA (16:24)
[2020-01-08 16:31] LABS: Basophils % 0.3 % (0.0-0.8); Eosinophils % 0.3 % (0.00-10.9); Hematocrit 40.6 VOL% (35.7-47.0); Hemoglobin 13.1 GM/DL (12.0-16.0); Immature Granulocytes % 0.8 %; Immature Granulocytes Absolute 0.11 #; Lymphocytes # 2.6 10*3/uL (1.4-4.0); Lymphocytes % 19.5 % (21.3-54.2); Mean Corpuscular HGB Conc 32.3 GM/DL (32-36); Mean Corpuscular Volume 88.3 FL (87-102); Mean Platelet Volume 9.9 FL (9.6-12.0); Monocytes % 7.3 % (1.7-12.7); NRBC # 0.02 10*3/uL; Neutrophils % 71.8 % (38.7-73.9); Platelet Count 393 T/CUMM (130-400); Red Cell Distribution Width 21.6 % (9.3-17.3); White Blood Count 13.2 T/CUMM (4-12)
[2020-01-08] MEDS ORDERED: HEPARIN LOCK FLUSH 500 UNIT/5 ML SYRINGE IV ONE (17:16)
[2020-01-08] MEDS ORDERED: DEXTROSE 50% 25 GM/50 ML VIAL IV PRN ×2 (18:46→20:09)
[2020-01-08] MEDS ORDERED: LACTULOSE 20 GM/30 ML UDCUP PO PRN (18:46)
[2020-01-08] MEDS ORDERED: ONDANSETRON 4 MG/2 ML VIAL IV PRN (18:46)
[2020-01-08] MEDS ORDERED: ACETAMINOPHEN 325 MG TABLET PO PRN (18:46)
[2020-01-08] MEDS ORDERED: DOCUSATE SODIUM 100 MG CAPSULE PO PRN (18:46)
[2020-01-08] MEDS ORDERED: ALUMINUM/MAGNES/SIMETH MAX STR 30 ML UDCUP PO PRN (18:46)
[2020-01-08] MEDS ORDERED: GLUCAGON 1 MG VIAL IM PRN ×2 (18:46→20:09)
[2020-01-08] MEDS ORDERED: MORPHINE 4 MG/1 ML VIAL IV PRN (18:46)
[2020-01-08] MEDS ORDERED: NICOTINE 21 MG/24 HR PATCH TRANSDERM PRN (18:46)
[2020-01-08] MEDS ORDERED: SIMETHICONE CHEW 125 MG TABLET PO PRN (18:46)
[2020-01-08] MEDS ORDERED: guaiFENesin/DM ER 600-30 MG TABLET PO PRN (18:46)
[2020-01-08] MEDS ORDERED: NITROGLYCERIN SL 0.4 MG TABLET SL PRN (19:15)
[2020-01-08] MEDS ORDERED: metOLazone 5 MG TABLET PO PRN (19:15)
[2020-01-08] MEDS: ALBUTEROL 2.5 MG/3 ML NEB RESP TX SCH (20:00)
[2020-01-08] MEDS: BUMETANIDE 1 MG TABLET PO SCH (22:44)
[2020-01-08] MEDS: PRAMIPEXOLE 1 MG TABLET PO SCH (22:44)
[2020-01-08] MEDS: POTASSIUM CHLORIDE 20 MEQ TABLET PO SCH (22:45)
[2020-01-08] MEDS: GABAPENTIN 400 MG CAPSULE PO SCH (22:45)
[2020-01-08] MEDS: RANOLAZINE 500 MG TABLET PO SCH (22:45)
[2020-01-08] MEDS: SPIRONOLACTONE 25 MG TABLET PO SCH (22:46)
[2020-01-08] MEDS: FUROSEMIDE 80 MG TABLET PO SCH (22:47)
[2020-01-08] MEDS: APIXABAN 2.5 MG TABLET PO SCH (22:47)
[2020-01-08] MEDS: SOTALOL 80 MG TABLET PO SCH (22:47)
[2020-01-08] MEDS: ZALEPLON 5 MG CAPSULE PO PRN (22:58)
[2020-01-08] MEDS: INSULIN LISPRO 100 UNIT/ML SUBCUT SCH (23:32)
[2020-01-09] MEDS: ALBUTEROL 2.5 MG/3 ML NEB RESP TX SCH ×4 (02:35→19:29)
[2020-01-09 06:05] LABS: Basophils # 0.1 10*3/uL (0.0-0.2); Basophils % 0.5 % (0.0-0.8); Eosinophils # 0.2 10*3/uL (0.0-0.87); Eosinophils % 1.6 % (0.00-10.9); Hematocrit 42.4 VOL% (35.7-47.0); Hemoglobin 13.6 GM/DL (12.0-16.0); Immature Granulocytes Absolute 0.11 #; Lymphocytes # 2.5 10*3/uL (1.4-4.0); Lymphocytes % 23.2 % (21.3-54.2); Mean Corpuscular HGB Conc 32.1 GM/DL (32-36); Mean Platelet Volume 10.5 FL (9.6-12.0); Monocytes % 9.5 % (1.7-12.7); NRBC # 0.02 10*3/uL; Neutrophils % 64.2 % (38.7-73.9); Platelet Count 375 T/CUMM (130-400); Red Blood Count 4.82 MC/CUMM (3.8-5.5); Red Cell Distribution Width 21.9 % (9.3-17.3)
[2020-01-09] MEDS: LEVOTHYROXINE 25 MCG TABLET PO SCH (06:33)
[2020-01-09] MEDS: LEVOTHYROXINE 200 MCG TABLET PO SCH (06:33)
[2020-01-09 06:35] LABS: Calcium 9.2 MG/DL (8.5-10.1); Osmolality,Calculated 281.5 MOS/KG (273-304); Risk Ratio 3.69; Thyroid Stimulating Hormone 6.31 uIU/ml (0.358-3.74); VLDL CHOLESTEROL 47.8 MG/DL
[2020-01-09 08:19] LABS: Troponin I < 0.015 NG/ML (0.00-0.045)
[2020-01-09] MEDS: DULoxetine 30 MG CAPSULE PO SCH (09:24)
[2020-01-09] MEDS: BUMETANIDE 1 MG TABLET PO SCH ×2 (09:24→20:12)
[2020-01-09] MEDS: POTASSIUM CHLORIDE 20 MEQ TABLET PO SCH ×2 (09:25→20:14)
[2020-01-09] MEDS: PANTOPRAZOLE 40 MG TABLET PO SCH (09:27)
[2020-01-09] MEDS: RANOLAZINE 500 MG TABLET PO SCH ×2 (09:27→20:12)
[2020-01-09] MEDS: ASPIRIN EC 81 MG TABLET PO SCH (09:28)
[2020-01-09] MEDS: GABAPENTIN 400 MG CAPSULE PO SCH ×3 (09:28→20:13)
[2020-01-09] MEDS: FUROSEMIDE 80 MG TABLET PO SCH ×2 (09:28→20:13)
[2020-01-09] MEDS: APIXABAN 2.5 MG TABLET PO SCH ×2 (09:28→20:13)
[2020-01-09] MEDS: SOTALOL 80 MG TABLET PO SCH ×2 (09:28→20:12)
[2020-01-09] MEDS: SPIRONOLACTONE 25 MG TABLET PO SCH ×2 (09:30→20:11)
[2020-01-09] MEDS: INSULIN LISPRO 100 UNIT/ML SUBCUT SCH ×4 (10:18→20:14)
[2020-01-09] MEDS: ZALEPLON 5 MG CAPSULE PO PRN (20:11)
[2020-01-09] MEDS: PRAMIPEXOLE 1 MG TABLET PO SCH (20:12)
[2020-01-10] MEDS: ALBUTEROL 2.5 MG/3 ML NEB RESP TX SCH ×2 (00:13→07:06)
[2020-01-10] MEDS: LEVOTHYROXINE 200 MCG TABLET PO SCH (06:01)
[2020-01-10] MEDS: LEVOTHYROXINE 25 MCG TABLET PO SCH (06:01)
[2020-01-10] MEDS: DULoxetine 30 MG CAPSULE PO SCH (08:52)
[2020-01-10] MEDS: SOTALOL 80 MG TABLET PO SCH (08:52)
[2020-01-10] MEDS: BUMETANIDE 1 MG TABLET PO SCH (08:52)
[2020-01-10] MEDS: POTASSIUM CHLORIDE 20 MEQ TABLET PO SCH (08:52)
[2020-01-10] MEDS: FUROSEMIDE 80 MG TABLET PO SCH (08:52)
[2020-01-10] MEDS: PANTOPRAZOLE 40 MG TABLET PO SCH (08:52)
[2020-01-10] MEDS: APIXABAN 2.5 MG TABLET PO SCH (08:52)
[2020-01-10] MEDS: ASPIRIN EC 81 MG TABLET PO SCH (08:52)
[2020-01-10] MEDS: RANOLAZINE 500 MG TABLET PO SCH (08:53)
[2020-01-10] MEDS: SPIRONOLACTONE 25 MG TABLET PO SCH (08:53)
[2020-01-10] MEDS: GABAPENTIN 400 MG CAPSULE PO SCH (08:53)
[2020-01-10 08:54] VITALS: BP 116/76
[2020-01-10] MEDS: INSULIN LISPRO 100 UNIT/ML SUBCUT SCH ×2 (08:55→13:11)
[2020-01-10] MEDS ORDERED: MULTIVITAMIN (CENTRUM) TABLET PO SCH (09:00)
== END 2020-01-10 12:39 | disposition home or self-care (01) ==
LOC: N.ED 15:08 → N.EDINP 15:08 → N.TELEN 19:39
PROVIDERS: ADMIT Internal Medicine; ATTEND Internal Medicine

== ENCOUNTER 2020-08-12 03:18 | Inpatient (IN) ==
[2020-08-12 05:14] LABS: Basophils % 0.3 % (0.0-0.8); Eosinophils % 0.1 % (0.00-10.9); Hematocrit 43.2 VOL% (35.7-47.0); Hemoglobin 14.4 GM/DL (12.0-16.0); Immature Granulocytes % 0.9 %; Immature Granulocytes Absolute 0.09 #; Lymphocytes # 2.9 10*3/uL (1.4-4.0); Lymphocytes % 27.7 % (21.3-54.2); Mean Corpuscular HGB Conc 33.3 GM/DL (32-36); Mean Corpuscular Volume 93.5 FL (87-102); Mean Platelet Volume 11.3 FL (9.6-12.0); Monocytes % 9.6 % (1.7-12.7); NRBC # 0.22 10*3/uL; Neutrophils % 61.4 % (38.7-73.9); Platelet Count 370 T/CUMM (130-400); Red Blood Count 4.62 MC/CUMM (3.8-5.5); Red Cell Distribution Width 16.4 % (9.3-17.3); White Blood Count 10.4 T/CUMM (4-12)
[2020-08-12 05:38] LABS: PT Patient Result 10.9 SECS (10.5-12.0); Partial Thromboplastin Time 20.5 SECS (23.9-33.8)
[2020-08-12 05:54] LABS: Albumin 3.4 G/DL (3.4-5.0); Bilirubin,Total 1.9 MG/DL (0.2-1.0); Calcium 8.7 MG/DL (8.5-10.1); Potassium 4.4 MMOL/L (3.5-5.1); Total Protein 7.2 G/DL (6.4-8.2)
[2020-08-12] MEDS ORDERED: GLUCAGON 1 MG VIAL IM PRN ×2 (06:19)
[2020-08-12] MEDS ORDERED: DOCUSATE SODIUM 100 MG CAPSULE PO PRN (06:19)
[2020-08-12] MEDS ORDERED: DEXTROSE 50% 25 GM/50 ML VIAL IV PRN ×2 (06:19)
[2020-08-12] MEDS ORDERED: guaiFENesin/DM ER 600-30 MG TABLET PO PRN (06:28)
[2020-08-12] MEDS ORDERED: ACETAMINOPHEN 500 MG TABLET PO PRN (06:28)
[2020-08-12] MEDS ORDERED: LEVALBUTEROL 1.25 MG/3 ML NEB RESP TX PRN (06:35)
[2020-08-12] MEDS ORDERED: FUROSEMIDE 40 MG/4 ML VIAL IV SCH (08:00)
[2020-08-12 08:15] LABS: Free T4 (Free Thyroxine) 1.06 NG/DL (0.76-1.46)
[2020-08-12] MEDS ORDERED: AMOXICILLIN/CLAV 875 MG TABLET PO SCH (09:00)
[2020-08-12] MEDS ORDERED: SOTALOL 80 MG TABLET PO SCH (09:00)
[2020-08-12] MEDS ORDERED: SPIRONOLACTONE 50 MG TABLET PO SCH (09:00)
[2020-08-12] MEDS: INSULIN LISPRO 100 UNIT/ML SUBCUT SCH ×4 (10:28→21:09)
[2020-08-12] MEDS: rOPINIRole 0.25 MG TABLET PO SCH ×3 (10:29→21:08)
[2020-08-12] MEDS: RANOLAZINE 500 MG TABLET PO SCH ×2 (10:30→21:08)
[2020-08-12] MEDS: APIXABAN 5 MG TABLET PO SCH ×2 (10:30→21:08)
[2020-08-12] MEDS: GABAPENTIN 400 MG CAPSULE PO SCH ×3 (10:30→21:08)
[2020-08-12] MEDS: PANTOPRAZOLE 40 MG TABLET PO SCH ×2 (10:30→21:08)
[2020-08-12] MEDS: MAGNESIUM OXIDE 400 MG TABLET PO SCH ×2 (10:30→21:08)
[2020-08-12] MEDS: LEVOTHYROXINE 75 MCG TABLET PO SCH (10:30)
[2020-08-12] MEDS: ASPIRIN EC 81 MG TABLET PO SCH (10:30)
[2020-08-12] MEDS: NITROGLYCERIN SL 0.4 MG TABLET SL PRN ×3 (11:46→12:05)
[2020-08-12] MEDS ORDERED: LEVALBUTEROL 1.25 MG/3 ML NEB RESP TX ONE (14:39)
[2020-08-12] MEDS: clonazePAM 0.5 MG TABLET PO PRN (16:27)
[2020-08-12] MEDS: LEVALBUTEROL 1.25 MG/3 ML NEB RESP TX SCH ×2 (19:11→23:40)
[2020-08-12] MEDS: ZALEPLON 5 MG CAPSULE PO PRN (21:08)
[2020-08-13] MEDS: clonazePAM 0.5 MG TABLET PO PRN ×2 (00:05→15:35)
[2020-08-13] MEDS: NITROGLYCERIN SL 0.4 MG TABLET SL PRN ×5 (00:05→17:04)
[2020-08-13] MEDS: LEVALBUTEROL 1.25 MG/3 ML NEB RESP TX SCH ×6 (02:51→23:19)
[2020-08-13 06:03] LABS: Basophils % 0.5 % (0.0-0.8); Eosinophils # 0.1 10*3/uL (0.0-0.87); Eosinophils % 1.4 % (0.00-10.9); Hematocrit 42.6 VOL% (35.7-47.0); Hemoglobin 13.9 GM/DL (12.0-16.0); Immature Granulocytes % 1.5 %; Immature Granulocytes Absolute 0.12 #; Lymphocytes # 2.5 10*3/uL (1.4-4.0); Lymphocytes % 32.3 % (21.3-54.2); Mean Corpuscular HGB Conc 32.6 GM/DL (32-36); Mean Corpuscular Volume 96.8 FL (87-102); Mean Platelet Volume 10.8 FL (9.6-12.0); Monocytes % 9.3 % (1.7-12.7); NRBC # 0.18 10*3/uL; Platelet Count 334 T/CUMM (130-400); Red Cell Distribution Width 16.8 % (9.3-17.3); White Blood Count 7.8 T/CUMM (4-12)
[2020-08-13 06:36] LABS: Albumin 3.1 G/DL (3.4-5.0); Bilirubin,Total 1.1 MG/DL (0.2-1.0); Calcium 9.1 MG/DL (8.5-10.1); Osmolality,Calculated 274.4 MOS/KG (273-304); Potassium 3.2 MMOL/L (3.5-5.1); Total Protein 7.3 G/DL (6.4-8.2)
[2020-08-13] MEDS: LEVOTHYROXINE 75 MCG TABLET PO SCH (06:46)
[2020-08-13] MEDS: methylPREDNISolone SOD SUC 40 MG/1 ML VIAL IV SCH ×2 (08:58→20:08)
[2020-08-13] MEDS: cefTRIAXone 1,000 MG in SODIUM CHLORIDE 0.9% 100 ML IV SCH (08:58)
[2020-08-13] MEDS: GABAPENTIN 400 MG CAPSULE PO SCH ×3 (08:59→20:07)
[2020-08-13] MEDS: INSULIN LISPRO 100 UNIT/ML SUBCUT SCH ×4 (08:59→20:08)
[2020-08-13] MEDS: MAGNESIUM OXIDE 400 MG TABLET PO SCH ×2 (08:59→20:07)
[2020-08-13] MEDS: APIXABAN 5 MG TABLET PO SCH ×2 (08:59→20:07)
[2020-08-13] MEDS: rOPINIRole 0.25 MG TABLET PO SCH ×3 (08:59→20:07)
[2020-08-13] MEDS: RANOLAZINE 500 MG TABLET PO SCH ×2 (08:59→20:07)
[2020-08-13] MEDS: PANTOPRAZOLE 40 MG TABLET PO SCH ×2 (08:59→20:07)
[2020-08-13] MEDS: ASPIRIN EC 81 MG TABLET PO SCH (09:00)
[2020-08-13] MEDS: ONDANSETRON 4 MG/2 ML VIAL IV PRN ×2 (13:18→17:53)
[2020-08-13] MEDS ORDERED: POTASSIUM CHLORIDE 20 MEQ TABLET PO PRN (14:58)
[2020-08-13] MEDS ORDERED: POTASSIUM CHLORIDE 20 MEQ TABLET PO ONE (15:03)
[2020-08-13] MEDS: FUROSEMIDE 40 MG/4 ML VIAL IV SCH (15:27)
[2020-08-13] MEDS: NITROGLYCERIN 2% OINT 1 INCH/GM PACK TOP SCH ×2 (17:52→23:04)
[2020-08-13] MEDS: MORPHINE 4 MG/1 ML VIAL IV PRN ×2 (17:58→23:04)
[2020-08-13] MEDS: ZALEPLON 5 MG CAPSULE PO PRN (23:04)
[2020-08-14] MEDS: LEVALBUTEROL 1.25 MG/3 ML NEB RESP TX SCH ×5 (03:29→20:48)
[2020-08-14] MEDS: MORPHINE 4 MG/1 ML VIAL IV PRN ×5 (03:46→23:22)
[2020-08-14] MEDS: ONDANSETRON 4 MG/2 ML VIAL IV PRN ×5 (03:47→23:27)
[2020-08-14 04:40] LABS: Basophils % 0.3 % (0.0-0.8); Hematocrit 40.7 VOL% (35.7-47.0); Hemoglobin 13.4 GM/DL (12.0-16.0); Immature Granulocytes % 1.7 %; Lymphocytes # 1.6 10*3/uL (1.4-4.0); Lymphocytes % 13.8 % (21.3-54.2); Mean Corpuscular HGB Conc 32.9 GM/DL (32-36); Mean Platelet Volume 11.6 FL (9.6-12.0); Monocytes % 3.8 % (1.7-12.7); NRBC # 0.18 10*3/uL; Neutrophils % 80.4 % (38.7-73.9); Platelet Count 342 T/CUMM (130-400); Red Blood Count 4.24 MC/CUMM (3.8-5.5); White Blood Count 11.8 T/CUMM (4-12)
[2020-08-14 04:56] LABS: Albumin 3.2 G/DL (3.4-5.0); Calcium 9.3 MG/DL (8.5-10.1); Osmolality,Calculated 283.5 MOS/KG (273-304); Osmolality,Calculated 285.4 MOS/KG (273-304); Potassium 4.1 MMOL/L (3.5-5.1); Potassium 4.5 MMOL/L (3.5-5.1); Total Protein 7.5 G/DL (6.4-8.2)
[2020-08-14] MEDS: NITROGLYCERIN 2% OINT 1 INCH/GM PACK TOP SCH ×4 (05:28→23:04)
[2020-08-14] MEDS: LEVOTHYROXINE 75 MCG TABLET PO SCH (06:01)
[2020-08-14] MEDS: INSULIN LISPRO 100 UNIT/ML SUBCUT SCH ×3 (09:34→16:30)
[2020-08-14] MEDS: methylPREDNISolone SOD SUC 40 MG/1 ML VIAL IV SCH ×2 (09:37→21:02)
[2020-08-14] MEDS: cefTRIAXone 1,000 MG in SODIUM CHLORIDE 0.9% 100 ML IV SCH (09:38)
[2020-08-14] MEDS: FUROSEMIDE 40 MG/4 ML VIAL IV SCH ×2 (09:38→16:29)
[2020-08-14] MEDS: RANOLAZINE 500 MG TABLET PO SCH ×2 (09:50→21:02)
[2020-08-14] MEDS: GABAPENTIN 400 MG CAPSULE PO SCH ×3 (09:50→21:02)
[2020-08-14] MEDS: rOPINIRole 0.25 MG TABLET PO SCH ×3 (09:51→21:02)
[2020-08-14] MEDS: PANTOPRAZOLE 40 MG TABLET PO SCH ×2 (09:51→21:02)
[2020-08-14] MEDS: ASPIRIN EC 81 MG TABLET PO SCH (09:51)
[2020-08-14] MEDS: MAGNESIUM OXIDE 400 MG TABLET PO SCH (09:51)
[2020-08-14] MEDS: APIXABAN 5 MG TABLET PO SCH ×2 (09:51→21:03)
[2020-08-14] MEDS: BENZONATATE 100 MG CAPSULE PO PRN (16:30)
[2020-08-14] MEDS: clonazePAM 0.5 MG TABLET PO PRN ×2 (17:18→23:05)
[2020-08-14] MEDS ORDERED: INSULIN GLARGINE 100 UNIT/ML SUBCUT SCH (21:00)
[2020-08-15] MEDS: LEVALBUTEROL 1.25 MG/3 ML NEB RESP TX SCH ×7 (00:53→23:37)
[2020-08-15] MEDS: INSULIN LISPRO 100 UNIT/ML SUBCUT SCH ×6 (03:59→21:20)
[2020-08-15] MEDS: MORPHINE 4 MG/1 ML VIAL IV PRN ×5 (03:59→21:20)
[2020-08-15 05:11] LABS: Basophils % 0.3 % (0.0-0.8); Hematocrit 37.7 VOL% (35.7-47.0); Hemoglobin 12.3 GM/DL (12.0-16.0); Immature Granulocytes % 2.4 %; Immature Granulocytes Absolute 0.36 #; Lymphocytes # 1.1 10*3/uL (1.4-4.0); Lymphocytes % 7.2 % (21.3-54.2); Mean Corpuscular HGB Conc 32.6 GM/DL (32-36); Mean Corpuscular Volume 97.9 FL (87-102); Mean Platelet Volume 11.4 FL (9.6-12.0); NRBC # 0.14 10*3/uL; Neutrophils % 87.1 % (38.7-73.9); Platelet Count 313 T/CUMM (130-400); Red Blood Count 3.85 MC/CUMM (3.8-5.5); Red Cell Distribution Width 17.2 % (9.3-17.3); White Blood Count 14.8 T/CUMM (4-12)
[2020-08-15 05:38] LABS: Calcium 9.3 MG/DL (8.5-10.1); Osmolality,Calculated 289.4 MOS/KG (273-304); Potassium 4.8 MMOL/L (3.5-5.1)
[2020-08-15 05:42] LABS: Albumin 3.3 G/DL (3.4-5.0); Bilirubin,Total 0.9 MG/DL (0.2-1.0); Calcium 9.4 MG/DL (8.5-10.1); Osmolality,Calculated 287.5 MOS/KG (273-304); Potassium 4.3 MMOL/L (3.5-5.1)
[2020-08-15] MEDS: NITROGLYCERIN 2% OINT 1 INCH/GM PACK TOP SCH ×3 (06:29→17:26)
[2020-08-15] MEDS: LEVOTHYROXINE 75 MCG TABLET PO SCH (06:30)
[2020-08-15] MEDS: GABAPENTIN 400 MG CAPSULE PO SCH ×3 (10:10→21:24)
[2020-08-15] MEDS: FUROSEMIDE 40 MG/4 ML VIAL IV SCH ×2 (10:10→10:59)
[2020-08-15] MEDS: RANOLAZINE 500 MG TABLET PO SCH ×2 (10:10→21:24)
[2020-08-15] MEDS: PANTOPRAZOLE 40 MG TABLET PO SCH ×2 (10:10→21:25)
[2020-08-15] MEDS: rOPINIRole 0.25 MG TABLET PO SCH ×3 (10:10→21:25)
[2020-08-15] MEDS: ASPIRIN EC 81 MG TABLET PO SCH (10:10)
[2020-08-15] MEDS: methylPREDNISolone SOD SUC 40 MG/1 ML VIAL IV SCH ×2 (10:13→21:24)
[2020-08-15] MEDS: ONDANSETRON 4 MG/2 ML VIAL IV PRN ×3 (10:17→21:17)
[2020-08-15] MEDS: cefTRIAXone 1,000 MG in SODIUM CHLORIDE 0.9% 100 ML IV SCH (10:20)
[2020-08-15] MEDS: APIXABAN 5 MG TABLET PO SCH (10:59)
[2020-08-15 11:57] LABS: Bilirubin,Urine Negative (Negative); Blood, Urine Large mg/dL (Negative); Glucose,Urine (UA) 150 mg/dL (Negative); Ketones,Urine Negative (Negative); Nitrite,Urine Negative (Negative); Protein,Urine Negative; RBC,Urine 1792 /HPF (0-4); Urine Appearance CLEAR (Clear); Urine Color Red (Yellow); Urine Specific Gravity 1.005 (1.001-1.035); Urine Urobilinogen < 2.0 EU/DL (0.2-1.0)
[2020-08-15] MEDS: BUDESONIDE/FORMOTEROL 160-4.5 INHALER 6 GM INH SCH ×2 (12:06→21:26)
[2020-08-15] MEDS ORDERED: INSULIN GLARGINE 100 UNIT/ML SUBCUT SCH (21:00)
[2020-08-15] MEDS: INSULIN GLARGINE 100 UNIT/ML SUBCUT SCH (21:18)
[2020-08-15] MEDS: clonazePAM 0.5 MG TABLET PO PRN (21:25)
[2020-08-16] MEDS: NITROGLYCERIN 2% OINT 1 INCH/GM PACK TOP SCH ×4 (02:12→17:52)
[2020-08-16] MEDS: ONDANSETRON 4 MG/2 ML VIAL IV PRN ×5 (02:16→22:20)
[2020-08-16] MEDS: MORPHINE 4 MG/1 ML VIAL IV PRN ×6 (02:16→22:24)
[2020-08-16] MEDS: LEVALBUTEROL 1.25 MG/3 ML NEB RESP TX SCH ×7 (03:50→23:58)
[2020-08-16 04:54] LABS: Basophils # 0.1 10*3/uL (0.0-0.2); Basophils % 0.6 % (0.0-0.8); Hematocrit 37.8 VOL% (35.7-47.0); Hemoglobin 12.3 GM/DL (12.0-16.0); Immature Granulocytes % 3.7 %; Immature Granulocytes Absolute 0.52 #; Lymphocytes # 1.2 10*3/uL (1.4-4.0); Lymphocytes % 8.3 % (21.3-54.2); Mean Corpuscular HGB Conc 32.5 GM/DL (32-36); Mean Corpuscular Volume 96.2 FL (87-102); Mean Platelet Volume 11.6 FL (9.6-12.0); Monocytes % 4.6 % (1.7-12.7); NRBC # 0.11 10*3/uL; Neutrophils % 82.8 % (38.7-73.9); Platelet Count 310 T/CUMM (130-400); Red Blood Count 3.93 MC/CUMM (3.8-5.5); Red Cell Distribution Width 17.3 % (9.3-17.3); White Blood Count 13.9 T/CUMM (4-12)
[2020-08-16 05:20] LABS: Hypochromasia 1+; Lymphocytes 4 % (20-55); Platelet Estimate Adequate; Segmented Neutrophils 93 % (50-85); Total Cells Counted 100
[2020-08-16 05:33] LABS: Albumin 3.2 G/DL (3.4-5.0); Bilirubin,Total 1.9 MG/DL (0.2-1.0); Calcium 9.3 MG/DL (8.5-10.1); Osmolality,Calculated 287.4 MOS/KG (273-304); Potassium 3.9 MMOL/L (3.5-5.1); Total Protein 6.9 G/DL (6.4-8.2)
[2020-08-16] MEDS: LEVOTHYROXINE 75 MCG TABLET PO SCH (06:34)
[2020-08-16 09:16] LABS: Hepatitis B Core IgM Quant 0.07 Index; Hepatitis B Surface Ag Quant < 0.10 Index; Hepatitis B Surface Ag Result Non-Reactive (NonReactive); Hepatitis C Virus Ab Quant 0.02 Index; Hepatitis C Virus Ab Result Non-Reactive (NonReactive)
[2020-08-16] MEDS: FUROSEMIDE 40 MG/4 ML VIAL IV SCH (09:56)
[2020-08-16] MEDS: PANTOPRAZOLE 40 MG TABLET PO SCH ×2 (09:57→22:21)
[2020-08-16] MEDS: GABAPENTIN 400 MG CAPSULE PO SCH ×3 (09:57→22:21)
[2020-08-16] MEDS: rOPINIRole 0.25 MG TABLET PO SCH ×3 (09:57→22:20)
[2020-08-16] MEDS: clonazePAM 0.5 MG TABLET PO PRN (09:58)
[2020-08-16] MEDS: RANOLAZINE 500 MG TABLET PO SCH ×2 (09:58→22:21)
[2020-08-16] MEDS: INSULIN LISPRO 100 UNIT/ML SUBCUT SCH ×4 (09:59→22:23)
[2020-08-16] MEDS: INSULIN GLARGINE 100 UNIT/ML SUBCUT SCH ×2 (09:59→22:22)
[2020-08-16] MEDS: methylPREDNISolone SOD SUC 40 MG/1 ML VIAL IV SCH ×2 (10:00→22:18)
[2020-08-16] MEDS: cefTRIAXone 1,000 MG in SODIUM CHLORIDE 0.9% 100 ML IV SCH (10:01)
[2020-08-16] MEDS: BUDESONIDE/FORMOTEROL 160-4.5 INHALER 6 GM INH SCH ×2 (10:02→22:24)
[2020-08-16] MEDS: METOPROLOL TARTRATE 25 MG TABLET PO SCH ×2 (12:34→22:21)
[2020-08-16] MEDS: BENZONATATE 100 MG CAPSULE PO PRN (14:14)
[2020-08-17] MEDS: NITROGLYCERIN 2% OINT 1 INCH/GM PACK TOP SCH ×4 (00:46→17:19)
[2020-08-17] MEDS: MORPHINE 4 MG/1 ML VIAL IV PRN ×5 (02:30→17:02)
[2020-08-17] MEDS: ONDANSETRON 4 MG/2 ML VIAL IV PRN ×4 (02:30→15:15)
[2020-08-17] MEDS: LEVALBUTEROL 1.25 MG/3 ML NEB RESP TX SCH ×4 (03:39→15:42)
[2020-08-17 05:55] LABS: Basophils # 0.1 10*3/uL (0.0-0.2); Basophils % 0.7 % (0.0-0.8); Immature Granulocytes % 4.9 %; Immature Granulocytes Absolute 0.64 #; Lymphocytes # 1.4 10*3/uL (1.4-4.0); Lymphocytes % 10.6 % (21.3-54.2); Mean Corpuscular HGB Conc 33.3 GM/DL (32-36); Mean Platelet Volume 11.6 FL (9.6-12.0); Monocytes % 6.2 % (1.7-12.7); NRBC # 0.08 10*3/uL; Neutrophils % 77.6 % (38.7-73.9); Platelet Count 311 T/CUMM (130-400); Red Blood Count 4.02 MC/CUMM (3.8-5.5); Red Cell Distribution Width 17.3 % (9.3-17.3)
[2020-08-17] MEDS: LEVOTHYROXINE 75 MCG TABLET PO SCH (05:58)
[2020-08-17 06:12] LABS: Albumin 3.4 G/DL (3.4-5.0); Bilirubin,Total 1.1 MG/DL (0.2-1.0); Calcium 9.2 MG/DL (8.5-10.1); Osmolality,Calculated 277.8 MOS/KG (273-304); Potassium 4.3 MMOL/L (3.5-5.1); Total Protein 7.3 G/DL (6.4-8.2)
[2020-08-17 06:14] LABS: Calcium 9.4 MG/DL (8.5-10.1); Osmolality,Calculated 279.8 MOS/KG (273-304); Potassium 4.3 MMOL/L (3.5-5.1)
[2020-08-17 06:24] LABS: Hypochromasia Slight; Lymphocytes 11 % (20-55); Microcytosis Slight; Nucleated Red Blood Cells 2 (0-5); Platelet Estimate Adequate; Segmented Neutrophils 85 % (50-85); Total Cells Counted 100
[2020-08-17] MEDS ORDERED: LIDOCAINE 2% TOP JELLY 20 ML VIAL INTRAURETH ONE (08:24)
[2020-08-17] MEDS: GABAPENTIN 400 MG CAPSULE PO SCH ×2 (08:58→15:14)
[2020-08-17] MEDS: RANOLAZINE 500 MG TABLET PO SCH (08:58)
[2020-08-17] MEDS: rOPINIRole 0.25 MG TABLET PO SCH ×2 (08:58→15:14)
[2020-08-17] MEDS: PANTOPRAZOLE 40 MG TABLET PO SCH (08:58)
[2020-08-17] MEDS: INSULIN LISPRO 100 UNIT/ML SUBCUT SCH ×3 (08:59→16:58)
[2020-08-17] MEDS: INSULIN GLARGINE 100 UNIT/ML SUBCUT SCH (08:59)
[2020-08-17] MEDS: BENZONATATE 100 MG CAPSULE PO PRN (08:59)
[2020-08-17] MEDS: FUROSEMIDE 40 MG/4 ML VIAL IV SCH (09:00)
[2020-08-17] MEDS: methylPREDNISolone SOD SUC 40 MG/1 ML VIAL IV SCH (09:02)
[2020-08-17] MEDS: BUDESONIDE/FORMOTEROL 160-4.5 INHALER 6 GM INH SCH (09:02)
[2020-08-17] MEDS: METOPROLOL TARTRATE 25 MG TABLET PO SCH (09:02)
[2020-08-17] MEDS: cefTRIAXone 1,000 MG in SODIUM CHLORIDE 0.9% 100 ML IV SCH (09:04)
[2020-08-17] MEDS: clonazePAM 0.5 MG TABLET PO PRN ×2 (11:42→17:02)
[2020-08-17 16:38] VITALS: BP 148/82
== END 2020-08-17 17:20 | disposition home health service (06) | DRG 309 ==
LOC: EDBD → EDUNIT# → N.ED 03:18 → N.EDINP 03:18 → SUATTDRO 05:17 → N.EDINP 08:00 → N.TELEN 08:30
PROVIDERS: ADMIT Internal Medicine; ATTEND Internal Medicine

== ENCOUNTER 2020-09-09 14:27 | Inpatient (IN) ==
[2020-09-09] MEDS ORDERED: DILTIAZEM 25 MG/5 ML VIAL IV ONE (14:47)
[2020-09-09] MEDS ORDERED: DILTIAZEM 100 MG VIAL.ADD IV ONE (14:47)
[2020-09-09] MEDS ORDERED: DILTIAZEM 50 MG/10 ML VIAL IV STA (14:58)
[2020-09-09 15:02] LABS: Basophils # 0.1 10*3/uL (0.0-0.2); Basophils % 0.4 % (0.0-0.8); Eosinophils % 0.3 % (0.00-10.9); Hematocrit 45.9 VOL% (35.7-47.0); Hemoglobin 15.2 GM/DL (12.0-16.0); Immature Granulocytes % 0.8 %; Immature Granulocytes Absolute 0.11 #; Lymphocytes # 3.8 10*3/uL (1.4-4.0); Lymphocytes % 27.9 % (21.3-54.2); Mean Corpuscular HGB Conc 33.1 GM/DL (32-36); Mean Corpuscular Volume 95.6 FL (87-102); Mean Platelet Volume 10.8 FL (9.6-12.0); Monocytes % 7.5 % (1.7-12.7); NRBC # 0.14 10*3/uL; Neutrophils % 63.1 % (38.7-73.9); Platelet Count 413 T/CUMM (130-400); Red Cell Distribution Width 15.2 % (9.3-17.3); White Blood Count 13.7 T/CUMM (4-12)
[2020-09-09] MEDS: DILTIAZEM INJ 100 MG in SODIUM CHLORIDE 0.9% 100 ML IV SCH ×2 (15:03→21:40)
[2020-09-09 15:11] LABS: Partial Thromboplastin Time 21.2 SECS (23.9-33.8)
[2020-09-09] MEDS ORDERED: ONDANSETRON 4 MG/2 ML VIAL ONE (15:18)
[2020-09-09] MEDS ORDERED: ONDANSETRON 4 MG/2 ML VIAL IV STA (15:18)
[2020-09-09] MEDS ORDERED: MORPHINE 4 MG/1 ML VIAL IV STA (15:18)
[2020-09-09] MEDS ORDERED: MORPHINE 4 MG/1 ML VIAL ONE (15:19)
[2020-09-09 15:25] LABS: Albumin 3.7 G/DL (3.4-5.0); Bilirubin,Total 0.7 MG/DL (0.2-1.0); Calcium 9.3 MG/DL (8.5-10.1); Osmolality,Calculated 273.2 MOS/KG (273-304); Potassium 3.1 MMOL/L (3.5-5.1); Total Protein 7.8 G/DL (6.4-8.2)
[2020-09-09] MEDS ORDERED: METOPROLOL TARTRATE 5 MG/5 ML VIAL IV ONE (15:42)
[2020-09-09] MEDS ORDERED: METOPROLOL TARTRATE 5 MG/5 ML VIAL IV STA (15:45)
[2020-09-09] MEDS ORDERED: MAGNESIUM SULF RIDER 2 GM/50 ML PREMIX IV ONE (16:02)
[2020-09-09] MEDS ORDERED: METOPROLOL TARTRATE 50 MG TABLET PO STA (16:02)
[2020-09-09] MEDS ORDERED: POTASSIUM CHLORIDE 20 MEQ TABLET PO STA (16:19)
[2020-09-09] MEDS ORDERED: DOCUSATE SODIUM 100 MG CAPSULE PO PRN (16:30)
[2020-09-09] MEDS ORDERED: GLUCAGON 1 MG VIAL IM PRN (16:30)
[2020-09-09] MEDS ORDERED: DEXTROSE 50% 25 GM/50 ML VIAL IV PRN ×2 (16:30)
[2020-09-09] MEDS ORDERED: cefTRIAXone 1,000 MG in SODIUM CHLORIDE 0.9% 100 ML IV SCH (18:00)
[2020-09-09] MEDS: INSULIN REGULAR 100 UNIT/ML SUBCUT SCH ×2 (18:28→21:36)
[2020-09-09] MEDS: ENOXAPARIN 40 MG/0.4 ML SYRINGE SUBCUT SCH (18:38)
[2020-09-09] MEDS ORDERED: guaiFENesin/DM ER 600-30 MG TABLET PO PRN (18:38)
[2020-09-09] MEDS: ceFAZolin 2,000 MG/50 ML DUPLEX IV SCH (18:38)
[2020-09-09] MEDS ORDERED: ZALEPLON 5 MG CAPSULE PO PRN (18:45)
[2020-09-09] MEDS: BUDESONIDE/FORMOTEROL 160-4.5 INHALER 6 GM INH SCH (21:20)
[2020-09-09] MEDS: PANTOPRAZOLE 40 MG TABLET PO SCH (21:23)
[2020-09-09] MEDS: DULoxetine 20 MG CAPSULE PO SCH (21:23)
[2020-09-09] MEDS: FUROSEMIDE 40 MG TABLET PO SCH (21:23)
[2020-09-09] MEDS: GABAPENTIN 400 MG CAPSULE PO SCH (21:23)
[2020-09-09] MEDS: POTASSIUM CHLORIDE 20 MEQ TABLET PO SCH (21:24)
[2020-09-09] MEDS: MAGNESIUM OXIDE 400 MG TABLET PO SCH (21:24)
[2020-09-09] MEDS: ZALEPLON 5 MG CAPSULE PO PRN (21:24)
[2020-09-09] MEDS: METOPROLOL TARTRATE 25 MG TABLET PO SCH (21:25)
[2020-09-09] MEDS: INSULIN GLARGINE 100 UNIT/ML SUBCUT SCH (21:35)
[2020-09-09] MEDS: rOPINIRole 0.25 MG TABLET PO SCH (21:36)
[2020-09-10] MEDS: MORPHINE 2 MG/1 ML SYRINGE IV PRN ×4 (01:05→21:19)
[2020-09-10] MEDS: ceFAZolin 2,000 MG/50 ML DUPLEX IV SCH ×3 (01:05→18:02)
[2020-09-10] MEDS: DILTIAZEM INJ 100 MG in SODIUM CHLORIDE 0.9% 100 ML IV SCH ×2 (05:04→21:18)
[2020-09-10] MEDS: NITROGLYCERIN SL 0.4 MG TABLET SL PRN ×3 (05:09→06:20)
[2020-09-10 05:41] LABS: Basophils # 0.1 10*3/uL (0.0-0.2); Basophils % 0.6 % (0.0-0.8); Eosinophils # 0.1 10*3/uL (0.0-0.87); Eosinophils % 0.9 % (0.00-10.9); Hematocrit 40.1 VOL% (35.7-47.0); Hemoglobin 13.6 GM/DL (12.0-16.0); Immature Granulocytes % 1.3 %; Immature Granulocytes Absolute 0.12 #; Lymphocytes # 2.5 10*3/uL (1.4-4.0); Lymphocytes % 27.8 % (21.3-54.2); Mean Corpuscular HGB Conc 33.9 GM/DL (32-36); Mean Corpuscular Volume 96.2 FL (87-102); Mean Platelet Volume 10.8 FL (9.6-12.0); Monocytes % 8.2 % (1.7-12.7); NRBC # 0.16 10*3/uL; Neutrophils % 61.2 % (38.7-73.9); Platelet Count 323 T/CUMM (130-400); Red Blood Count 4.17 MC/CUMM (3.8-5.5); Red Cell Distribution Width 15.3 % (9.3-17.3); White Blood Count 8.9 T/CUMM (4-12)
[2020-09-10 06:31] LABS: Calcium 8.2 MG/DL (8.5-10.1); Osmolality,Calculated 270.5 MOS/KG (273-304); Thyroid Stimulating Hormone 4.19 uIU/ml (0.358-3.74)
[2020-09-10 06:39] LABS: Potassium 2.5 MMOL/L (3.5-5.1)
[2020-09-10] MEDS: POTASSIUM CHLORIDE 20 MEQ TABLET PO PRN (07:35)
[2020-09-10] MEDS: ONDANSETRON 4 MG/2 ML VIAL IV PRN ×2 (07:38→15:13)
[2020-09-10] MEDS ORDERED: predniSONE 10 MG TABLET PO SCH (09:00)
[2020-09-10] MEDS: ASPIRIN 325 MG TABLET PO SCH (09:29)
[2020-09-10] MEDS: LEVOTHYROXINE 75 MCG TABLET PO SCH (09:30)
[2020-09-10] MEDS: METOPROLOL TARTRATE 25 MG TABLET PO SCH ×2 (09:30→21:17)
[2020-09-10] MEDS: POTASSIUM CHLORIDE 20 MEQ TABLET PO SCH ×2 (09:31→21:15)
[2020-09-10] MEDS: rOPINIRole 0.25 MG TABLET PO SCH ×3 (09:31→21:15)
[2020-09-10] MEDS: GABAPENTIN 400 MG CAPSULE PO SCH ×3 (09:31→21:17)
[2020-09-10] MEDS: DULoxetine 20 MG CAPSULE PO SCH ×2 (09:32→21:14)
[2020-09-10] MEDS: FUROSEMIDE 40 MG TABLET PO SCH ×2 (09:32→21:15)
[2020-09-10] MEDS: MAGNESIUM OXIDE 400 MG TABLET PO SCH ×2 (09:32→21:14)
[2020-09-10] MEDS: PANTOPRAZOLE 40 MG TABLET PO SCH ×3 (09:32→21:17)
[2020-09-10] MEDS: INSULIN REGULAR 100 UNIT/ML SUBCUT SCH ×4 (09:34→22:50)
[2020-09-10] MEDS: INSULIN GLARGINE 100 UNIT/ML SUBCUT SCH ×2 (09:35→22:50)
[2020-09-10] MEDS: BUDESONIDE/FORMOTEROL 160-4.5 INHALER 6 GM INH SCH ×2 (09:36→21:19)
[2020-09-10] MEDS: SPIRONOLACTONE 25 MG TABLET PO SCH ×2 (11:10→11:14)
[2020-09-10] MEDS ORDERED: allopurinoL 300 MG TABLET PO ONE (15:06)
[2020-09-10] MEDS ORDERED: COLCHICINE 0.6 MG CAPSULE PO ONE (15:07)
[2020-09-10] MEDS: ENOXAPARIN 40 MG/0.4 ML SYRINGE SUBCUT SCH (17:14)
[2020-09-10] MEDS: ISOSORBIDE MONONITRATE 20 MG TABLET PO SCH (17:15)
[2020-09-10] MEDS: ZALEPLON 5 MG CAPSULE PO PRN (21:14)
[2020-09-10] MEDS: ASCORBIC ACID 500 MG TABLET PO SCH (21:16)
[2020-09-10] MEDS: COLCHICINE 0.6 MG CAPSULE PO SCH (21:16)
[2020-09-11] MEDS: ceFAZolin 2,000 MG/50 ML DUPLEX IV SCH ×3 (02:48→18:39)
[2020-09-11] MEDS: MORPHINE 2 MG/1 ML SYRINGE IV PRN ×4 (02:49→23:23)
[2020-09-11 05:20] LABS: Basophils # 0.1 10*3/uL (0.0-0.2); Basophils % 0.6 % (0.0-0.8); Eosinophils # 0.1 10*3/uL (0.0-0.87); Hematocrit 38.5 VOL% (35.7-47.0); Hemoglobin 12.7 GM/DL (12.0-16.0); Immature Granulocytes % 1.8 %; Immature Granulocytes Absolute 0.19 #; Lymphocytes # 2.1 10*3/uL (1.4-4.0); Lymphocytes % 20.2 % (21.3-54.2); Mean Platelet Volume 10.8 FL (9.6-12.0); Monocytes % 7.1 % (1.7-12.7); NRBC # 0.14 10*3/uL; Neutrophils % 69.3 % (38.7-73.9); Platelet Count 323 T/CUMM (130-400); Red Blood Count 3.97 MC/CUMM (3.8-5.5); Red Cell Distribution Width 15.1 % (9.3-17.3); White Blood Count 10.6 T/CUMM (4-12)
[2020-09-11 05:49] LABS: Calcium 8.2 MG/DL (8.5-10.1); Osmolality,Calculated 267.8 MOS/KG (273-304)
[2020-09-11 05:59] LABS: Potassium 2.5 MMOL/L (3.5-5.1)
[2020-09-11] MEDS: POTASSIUM CHLORIDE 20 MEQ TABLET PO PRN ×5 (06:10→16:41)
[2020-09-11] MEDS: INSULIN REGULAR 100 UNIT/ML SUBCUT SCH ×4 (09:31→21:26)
[2020-09-11] MEDS: INSULIN GLARGINE 100 UNIT/ML SUBCUT SCH ×2 (09:31→21:27)
[2020-09-11] MEDS: GABAPENTIN 400 MG CAPSULE PO SCH ×3 (09:36→21:26)
[2020-09-11] MEDS: ASCORBIC ACID 500 MG TABLET PO SCH ×2 (09:37→21:25)
[2020-09-11] MEDS: METOPROLOL TARTRATE 25 MG TABLET PO SCH ×2 (09:37→21:25)
[2020-09-11] MEDS: LEVOTHYROXINE 75 MCG TABLET PO SCH (09:37)
[2020-09-11] MEDS: rOPINIRole 0.25 MG TABLET PO SCH ×3 (09:37→21:25)
[2020-09-11] MEDS: allopurinoL 300 MG TABLET PO SCH (09:38)
[2020-09-11] MEDS: MAGNESIUM OXIDE 400 MG TABLET PO SCH ×2 (09:38→21:24)
[2020-09-11] MEDS: ASPIRIN 325 MG TABLET PO SCH (09:38)
[2020-09-11] MEDS: COLCHICINE 0.6 MG CAPSULE PO SCH ×2 (09:39→21:25)
[2020-09-11] MEDS: FUROSEMIDE 40 MG TABLET PO SCH ×2 (09:39→21:25)
[2020-09-11] MEDS: PANTOPRAZOLE 40 MG TABLET PO SCH ×3 (09:39→21:25)
[2020-09-11] MEDS: DILTIAZEM CD 120 MG CAPSULE PO SCH ×2 (09:39→21:25)
[2020-09-11] MEDS: SPIRONOLACTONE 25 MG TABLET PO SCH (09:40)
[2020-09-11] MEDS: DULoxetine 20 MG CAPSULE PO SCH ×2 (09:40→21:24)
[2020-09-11] MEDS: POTASSIUM CHLORIDE 20 MEQ TABLET PO SCH ×2 (09:41→21:37)
[2020-09-11] MEDS: ISOSORBIDE MONONITRATE 20 MG TABLET PO SCH (09:42)
[2020-09-11] MEDS: BUDESONIDE/FORMOTEROL 160-4.5 INHALER 6 GM INH SCH ×2 (09:43→21:28)
[2020-09-11] MEDS: ONDANSETRON 4 MG/2 ML VIAL IV PRN ×3 (13:20→23:24)
[2020-09-11] MEDS: DILTIAZEM INJ 100 MG in SODIUM CHLORIDE 0.9% 100 ML IV SCH (14:41)
[2020-09-11] MEDS: ENOXAPARIN 40 MG/0.4 ML SYRINGE SUBCUT SCH (16:41)
[2020-09-12] MEDS: ceFAZolin 2,000 MG/50 ML DUPLEX IV SCH ×3 (02:04→18:12)
[2020-09-12 06:18] LABS: Basophils % 0.5 % (0.0-0.8); Eosinophils # 0.1 10*3/uL (0.0-0.87); Eosinophils % 0.9 % (0.00-10.9); Hemoglobin 12.6 GM/DL (12.0-16.0); Immature Granulocytes % 4.3 %; Immature Granulocytes Absolute 0.32 #; Lymphocytes # 1.6 10*3/uL (1.4-4.0); Lymphocytes % 20.9 % (21.3-54.2); Mean Corpuscular HGB Conc 31.5 GM/DL (32-36); Mean Platelet Volume 11.5 FL (9.6-12.0); Monocytes % 9.1 % (1.7-12.7); NRBC # 0.18 10*3/uL; Neutrophils % 64.3 % (38.7-73.9); Platelet Count 349 T/CUMM (130-400); Red Cell Distribution Width 15.4 % (9.3-17.3); White Blood Count 7.5 T/CUMM (4-12)
[2020-09-12 06:41] LABS: Calcium 8.5 MG/DL (8.5-10.1); Osmolality,Calculated 273.2 MOS/KG (273-304)
[2020-09-12] MEDS: MORPHINE 2 MG/1 ML SYRINGE IV PRN ×3 (06:51→21:10)
[2020-09-12] MEDS: ONDANSETRON 4 MG/2 ML VIAL IV PRN ×3 (06:52→21:07)
[2020-09-12] MEDS: MAGNESIUM OXIDE 400 MG TABLET PO SCH ×2 (08:51→21:05)
[2020-09-12] MEDS: LEVOTHYROXINE 75 MCG TABLET PO SCH (08:51)
[2020-09-12] MEDS: ASCORBIC ACID 500 MG TABLET PO SCH ×2 (08:51→21:04)
[2020-09-12] MEDS: PANTOPRAZOLE 40 MG TABLET PO SCH ×3 (08:52→21:05)
[2020-09-12] MEDS: DULoxetine 20 MG CAPSULE PO SCH ×2 (08:52→21:05)
[2020-09-12] MEDS: POTASSIUM CHLORIDE 20 MEQ TABLET PO PRN ×3 (08:52→15:30)
[2020-09-12] MEDS: POTASSIUM CHLORIDE 20 MEQ TABLET PO SCH ×2 (08:52→21:05)
[2020-09-12] MEDS: SPIRONOLACTONE 25 MG TABLET PO SCH (08:52)
[2020-09-12] MEDS: DILTIAZEM CD 120 MG CAPSULE PO SCH ×2 (08:53→21:03)
[2020-09-12] MEDS: allopurinoL 300 MG TABLET PO SCH (08:53)
[2020-09-12] MEDS: METOPROLOL TARTRATE 25 MG TABLET PO SCH ×2 (08:53→21:05)
[2020-09-12] MEDS: COLCHICINE 0.6 MG CAPSULE PO SCH ×2 (08:53→21:04)
[2020-09-12] MEDS: ASPIRIN 325 MG TABLET PO SCH (08:53)
[2020-09-12] MEDS: INSULIN GLARGINE 100 UNIT/ML SUBCUT SCH ×2 (08:53→21:06)
[2020-09-12] MEDS: rOPINIRole 0.25 MG TABLET PO SCH ×3 (08:53→21:04)
[2020-09-12] MEDS: INSULIN REGULAR 100 UNIT/ML SUBCUT SCH ×4 (08:54→21:07)
[2020-09-12] MEDS: BUDESONIDE/FORMOTEROL 160-4.5 INHALER 6 GM INH SCH ×2 (09:00→21:06)
[2020-09-12] MEDS: GABAPENTIN 400 MG CAPSULE PO SCH ×3 (09:04→21:05)
[2020-09-12] MEDS: FUROSEMIDE 40 MG TABLET PO SCH ×2 (09:04→21:05)
[2020-09-12] MEDS ORDERED: POTASSIUM CHLORIDE 20 MEQ TABLET PO ONE (12:00)
[2020-09-12] MEDS: DILTIAZEM INJ 100 MG in SODIUM CHLORIDE 0.9% 100 ML IV SCH (15:11)
[2020-09-12 15:43] LABS: Calcium 8.5 MG/DL (8.5-10.1); Osmolality,Calculated 272.4 MOS/KG (273-304); Potassium 3.3 MMOL/L (3.5-5.1)
[2020-09-12] MEDS: ENOXAPARIN 40 MG/0.4 ML SYRINGE SUBCUT SCH (17:02)
[2020-09-12] MEDS: ZALEPLON 5 MG CAPSULE PO PRN (21:03)
[2020-09-13] MEDS: MORPHINE 2 MG/1 ML SYRINGE IV PRN (02:11)
[2020-09-13] MEDS: ceFAZolin 2,000 MG/50 ML DUPLEX IV SCH ×2 (02:11→10:46)
[2020-09-13 06:12] LABS: Basophils # 0.1 10*3/uL (0.0-0.2); Basophils % 0.6 % (0.0-0.8); Eosinophils # 0.1 10*3/uL (0.0-0.87); Eosinophils % 1.2 % (0.00-10.9); Hematocrit 39.1 VOL% (35.7-47.0); Hemoglobin 12.1 GM/DL (12.0-16.0); Immature Granulocytes Absolute 0.25 #; Lymphocytes % 23.9 % (21.3-54.2); Mean Corpuscular HGB Conc 30.9 GM/DL (32-36); Mean Corpuscular Volume 103.2 FL (87-102); Mean Platelet Volume 11.2 FL (9.6-12.0); NRBC # 0.16 10*3/uL; Neutrophils % 60.3 % (38.7-73.9); Platelet Count 337 T/CUMM (130-400); Red Blood Count 3.79 MC/CUMM (3.8-5.5); Red Cell Distribution Width 16.4 % (9.3-17.3); White Blood Count 8.2 T/CUMM (4-12)
[2020-09-13 06:46] LABS: Calcium 8.9 MG/DL (8.5-10.1); Osmolality,Calculated 273.1 MOS/KG (273-304); Potassium 3.7 MMOL/L (3.5-5.1)
[2020-09-13 06:50] LABS: Albumin 3.2 G/DL (3.4-5.0); Bilirubin,Total 1.2 MG/DL (0.20-1.00); Calcium 8.8 MG/DL (8.5-10.1); Potassium 3.7 MMOL/L (3.5-5.1); Total Protein 7.2 G/DL (6.4-8.2)
[2020-09-13] MEDS: INSULIN GLARGINE 100 UNIT/ML SUBCUT SCH (08:34)
[2020-09-13] MEDS: INSULIN REGULAR 100 UNIT/ML SUBCUT SCH ×2 (08:35→12:34)
[2020-09-13] MEDS: ONDANSETRON 4 MG/2 ML VIAL IV PRN (08:35)
[2020-09-13] MEDS: LEVOTHYROXINE 75 MCG TABLET PO SCH (08:36)
[2020-09-13] MEDS: MAGNESIUM OXIDE 400 MG TABLET PO SCH (08:36)
[2020-09-13] MEDS: GABAPENTIN 400 MG CAPSULE PO SCH ×2 (08:36→14:23)
[2020-09-13] MEDS: ASCORBIC ACID 500 MG TABLET PO SCH (08:36)
[2020-09-13] MEDS: FUROSEMIDE 40 MG TABLET PO SCH (08:36)
[2020-09-13] MEDS: SPIRONOLACTONE 25 MG TABLET PO SCH (08:37)
[2020-09-13] MEDS: PANTOPRAZOLE 40 MG TABLET PO SCH ×2 (08:37→09:51)
[2020-09-13] MEDS: METOPROLOL TARTRATE 25 MG TABLET PO SCH (08:37)
[2020-09-13] MEDS: ASPIRIN 325 MG TABLET PO SCH (08:38)
[2020-09-13] MEDS: DILTIAZEM CD 120 MG CAPSULE PO SCH (08:38)
[2020-09-13] MEDS: DULoxetine 20 MG CAPSULE PO SCH (08:38)
[2020-09-13] MEDS: POTASSIUM CHLORIDE 20 MEQ TABLET PO SCH (08:38)
[2020-09-13] MEDS: COLCHICINE 0.6 MG CAPSULE PO SCH (08:38)
[2020-09-13] MEDS: allopurinoL 300 MG TABLET PO SCH (08:38)
[2020-09-13] MEDS: rOPINIRole 0.25 MG TABLET PO SCH ×2 (08:38→14:23)
[2020-09-13] MEDS: BUDESONIDE/FORMOTEROL 160-4.5 INHALER 6 GM INH SCH (08:39)
[2020-09-13 11:38] VITALS: BP 126/74
[2020-09-13 19:31] LABS: CDT Result Positive (Negative); CDT Specimen Source STOOL
== END 2020-09-13 14:30 | disposition home or self-care (01) | DRG 309 ==
LOC: N.ED 14:27 → N.EDINP 14:27 → N.TELEN 17:03
PROVIDERS: ADMIT Internal Medicine; ATTEND Internal Medicine

== ENCOUNTER 2020-11-25 21:07 | Inpatient (IN) ==
[2020-11-25] MEDS ORDERED: SODIUM CHLORIDE 0.9% 1,000 ML IV STA (21:40)
[2020-11-25 21:49] LABS: Basophils % 0.1 % (0.0-0.8); Hematocrit 38.5 VOL% (35.7-47.0); Hemoglobin 12.4 GM/DL (12.0-16.0); Immature Granulocytes % 2.2 %; Immature Granulocytes Absolute 0.32 #; Lymphocytes # 1.7 10*3/uL (1.4-4.0); Lymphocytes % 12.2 % (21.3-54.2); Mean Corpuscular HGB Conc 32.2 GM/DL (32-36); Mean Corpuscular Volume 100.3 FL (87-102); Mean Platelet Volume 11.2 FL (9.6-12.0); Monocytes % 12.6 % (1.7-12.7); NRBC # 0.39 10*3/uL; Neutrophils % 72.9 % (38.7-73.9); Platelet Count 369 T/CUMM (130-400); Red Blood Count 3.84 MC/CUMM (3.8-5.5); White Blood Count 14.3 T/CUMM (4-12)
[2020-11-25 22:05] LABS: Alanine Aminotransferase 101 U/L (13-56); Albumin 3.3 G/DL (3.4-5.0); Alkaline Phosphatase 177 U/L (45-117); Aspartate Amino Transferase 116 U/L (0-37); Blood Urea Nitrogen 22 MG/DL (7-18); Calcium 8.5 MG/DL (8.5-10.1); Carbon Dioxide 23 MMOL/L (21-32); Estimated Glom Filtration Rate 60 ML/MIN; Osmolality,Calculated 300.2 MOS/KG (273-304); Potassium 4.3 MMOL/L (3.5-5.1); Sodium 134 MMOL/L (136-145); Total Protein 7.4 G/DL (6.4-8.2)
[2020-11-25 22:07] LABS: Glucose 636 MG/DL (74-106)
[2020-11-25 22:16] LABS: Ferritin 281.7 ng/mL (8-252)
[2020-11-25 22:55] LABS: ABG Base Excess -2.5 MMOL/L (-2.5-2.5); ABG HCO3 22.3 MMOL/L (20-26); ABG Oxygen Saturation 98.4 % (95-100); ABG PCO2 46.2 MM HG (35-48); ABG PH 7.321 (7.35-7.45); ABG TCO2 21.1 MMOL/L (23-27)
[2020-11-25] MEDS ORDERED: ALBUTEROL/IPRATROPIUM 3 ML NEB RESP TX STA (23:09)
[2020-11-25] MEDS ORDERED: INSULIN REGULAR 100 UNIT/ML IV STA (23:10)
[2020-11-25] MEDS ORDERED: ONDANSETRON 4 MG/2 ML VIAL IV STA (23:52)
[2020-11-25] MEDS ORDERED: MORPHINE 2 MG/1 ML SYRINGE IV STA (23:52)
[2020-11-26] MEDS ORDERED: LEVOFLOXACIN INJ 500 MG/100 ML PREMIX IV STA (00:25)
[2020-11-26] MEDS ORDERED: GLUCAGON 1 MG VIAL IM PRN (01:31)
[2020-11-26] MEDS ORDERED: hydrALAZINE 20 MG/1 ML VIAL IV PRN (01:31)
[2020-11-26] MEDS ORDERED: ONDANSETRON 4 MG/2 ML VIAL IV PRN (01:31)
[2020-11-26] MEDS ORDERED: ACETAMINOPHEN 325 MG TABLET PO PRN (01:31)
[2020-11-26] MEDS ORDERED: DEXTROSE 50% 25 GM/50 ML VIAL IV PRN (01:31)
[2020-11-26 02:46] LABS: Basophils % 0.1 % (0.0-0.8); Hematocrit 39.8 VOL% (35.7-47.0); Hemoglobin 12.8 GM/DL (12.0-16.0); Immature Granulocytes % 2.2 %; Immature Granulocytes Absolute 0.33 #; Lymphocytes # 1.3 10*3/uL (1.4-4.0); Lymphocytes % 8.4 % (21.3-54.2); Mean Corpuscular HGB Conc 32.2 GM/DL (32-36); Mean Corpuscular Volume 99.3 FL (87-102); Monocytes % 13.3 % (1.7-12.7); Platelet Count 361 T/CUMM (130-400); Red Blood Count 4.01 MC/CUMM (3.8-5.5); White Blood Count 15.1 T/CUMM (4-12)
[2020-11-26] MEDS: MORPHINE 2 MG/1 ML SYRINGE IV PRN ×2 (03:15→06:15)
[2020-11-26] MEDS: methylPREDNISolone SOD SUC 40 MG/1 ML VIAL IV SCH ×2 (03:15→14:34)
[2020-11-26] MEDS: PIPERACILLIN/TAZOBACTAM 3,375 MG in SODIUM CHLORIDE 0.9% 100 ML IV SCH ×3 (03:15→21:24)
[2020-11-26 06:59] LABS: Albumin 3.3 G/DL (3.4-5.0); Bilirubin,Total 1.3 MG/DL (0.20-1.00); Calcium 8.6 MG/DL (8.5-10.1); Osmolality,Calculated 281.4 MOS/KG (273-304); Risk Ratio 2.6; Thyroid Stimulating Hormone 8.95 uIU/ml (0.358-3.74); Total Protein 7.3 G/DL (6.4-8.2); VLDL Cholesterol 27.2 MG/DL
[2020-11-26] MEDS: ALBUTEROL/IPRATROPIUM 3 ML NEB RESP TX SCH ×3 (07:51→19:20)
[2020-11-26] MEDS: ENOXAPARIN 40 MG/0.4 ML SYRINGE SUBCUT SCH (08:35)
[2020-11-26] MEDS: INSULIN REGULAR 100 UNIT/ML SUBCUT SCH ×4 (08:36→21:26)
[2020-11-26] MEDS: DULoxetine 20 MG CAPSULE PO SCH ×2 (14:32→21:25)
[2020-11-26] MEDS: GABAPENTIN 400 MG CAPSULE PO SCH ×2 (14:32→21:25)
[2020-11-26] MEDS: ASPIRIN 325 MG TABLET PO SCH (14:32)
[2020-11-26] MEDS: allopurinoL 300 MG TABLET PO SCH (14:32)
[2020-11-26] MEDS: METOPROLOL TARTRATE 25 MG TABLET PO SCH ×2 (14:33→21:25)
[2020-11-26] MEDS: DILTIAZEM CD 120 MG CAPSULE PO SCH ×2 (14:33→21:25)
[2020-11-26] MEDS: INSULIN GLARGINE 100 UNIT/ML SUBCUT SCH ×2 (14:34→21:26)
[2020-11-26] MEDS: BUDESONIDE/FORMOTEROL 160-4.5 INHALER 6 GM INH SCH ×2 (16:59→21:25)
[2020-11-26] MEDS: rOPINIRole 0.25 MG TABLET PO SCH ×2 (16:59→23:16)
[2020-11-26] MEDS: ZALEPLON 5 MG CAPSULE PO PRN (23:17)
[2020-11-27] MEDS: ALBUTEROL/IPRATROPIUM 3 ML NEB RESP TX SCH ×4 (00:26→19:45)
[2020-11-27] MEDS: methylPREDNISolone SOD SUC 40 MG/1 ML VIAL IV SCH ×2 (01:57→14:19)
[2020-11-27 02:02] LABS: Basophils % 0.3 % (0.0-0.8); Hematocrit 39.2 VOL% (35.7-47.0); Hemoglobin 12.6 GM/DL (12.0-16.0); Immature Granulocytes % 2.2 %; Immature Granulocytes Absolute 0.23 #; Lymphocytes # 1.8 10*3/uL (1.4-4.0); Mean Corpuscular HGB Conc 32.1 GM/DL (32-36); Mean Corpuscular Volume 100.5 FL (87-102); Monocytes % 13.3 % (1.7-12.7); NRBC # 0.49 10*3/uL; Neutrophils % 67.2 % (38.7-73.9); Platelet Count 342 T/CUMM (130-400); Red Cell Distribution Width 17.2 % (9.3-17.3); White Blood Count 10.5 T/CUMM (4-12)
[2020-11-27 02:10] LABS: Calcium 9.1 MG/DL (8.5-10.1); Osmolality,Calculated 281.5 MOS/KG (273-304); Potassium 4.6 MMOL/L (3.5-5.1)
[2020-11-27] MEDS: PIPERACILLIN/TAZOBACTAM 3,375 MG in SODIUM CHLORIDE 0.9% 100 ML IV SCH ×3 (05:48→20:59)
[2020-11-27] MEDS: LEVOTHYROXINE 75 MCG TABLET PO SCH (05:48)
[2020-11-27] MEDS: INSULIN REGULAR 100 UNIT/ML SUBCUT SCH ×5 (08:25→21:21)
[2020-11-27] MEDS: ASPIRIN 325 MG TABLET PO SCH (09:54)
[2020-11-27] MEDS: METOPROLOL TARTRATE 25 MG TABLET PO SCH ×2 (09:55→21:03)
[2020-11-27] MEDS: DULoxetine 20 MG CAPSULE PO SCH ×2 (09:55→21:03)
[2020-11-27] MEDS: rOPINIRole 0.25 MG TABLET PO SCH ×3 (09:55→21:16)
[2020-11-27] MEDS: GABAPENTIN 400 MG CAPSULE PO SCH ×3 (09:55→21:05)
[2020-11-27] MEDS: DILTIAZEM CD 120 MG CAPSULE PO SCH ×2 (09:55→21:04)
[2020-11-27] MEDS: allopurinoL 300 MG TABLET PO SCH (09:56)
[2020-11-27] MEDS: INSULIN GLARGINE 100 UNIT/ML SUBCUT SCH ×2 (09:56→21:07)
[2020-11-27] MEDS: ENOXAPARIN 40 MG/0.4 ML SYRINGE SUBCUT SCH (09:56)
[2020-11-27] MEDS: BUDESONIDE/FORMOTEROL 160-4.5 INHALER 6 GM INH SCH ×2 (09:57→21:01)
[2020-11-27] MEDS: ZALEPLON 5 MG CAPSULE PO PRN (21:10)
[2020-11-28] MEDS: ALBUTEROL/IPRATROPIUM 3 ML NEB RESP TX SCH ×2 (00:02→07:09)
[2020-11-28 01:51] LABS: Basophils # 0.1 10*3/uL (0.0-0.2); Basophils % 0.4 % (0.0-0.8); Eosinophils % 0.2 % (0.00-10.9); Hematocrit 39.5 VOL% (35.7-47.0); Hemoglobin 12.7 GM/DL (12.0-16.0); Immature Granulocytes % 2.8 %; Immature Granulocytes Absolute 0.35 #; Lymphocytes % 16.2 % (21.3-54.2); Mean Corpuscular HGB Conc 32.2 GM/DL (32-36); Mean Corpuscular Volume 101.3 FL (87-102); Mean Platelet Volume 10.8 FL (9.6-12.0); Monocytes % 12.3 % (1.7-12.7); NRBC # 0.43 10*3/uL; Neutrophils % 68.1 % (38.7-73.9); Platelet Count 341 T/CUMM (130-400); Red Cell Distribution Width 17.5 % (9.3-17.3); White Blood Count 12.4 T/CUMM (4-12)
[2020-11-28 02:13] LABS: Calcium 8.9 MG/DL (8.5-10.1); Osmolality,Calculated 286.7 MOS/KG (273-304); Potassium 3.9 MMOL/L (3.5-5.1)
[2020-11-28] MEDS: PIPERACILLIN/TAZOBACTAM 3,375 MG in SODIUM CHLORIDE 0.9% 100 ML IV SCH (05:44)
[2020-11-28] MEDS: LEVOTHYROXINE 75 MCG TABLET PO SCH (06:27)
[2020-11-28 07:17] LABS: Eosinophils 1 % (0-10); Lymphocytes 20 % (20-55); Segmented Neutrophils 69 % (50-85); Total Cells Counted 100
[2020-11-28 07:18] LABS: Hypochromasia 1+; Microcytosis 1+; Platelet Estimate Adequate
[2020-11-28 08:17] VITALS: BP 138/72
[2020-11-28] MEDS: INSULIN REGULAR 100 UNIT/ML SUBCUT SCH (10:05)
[2020-11-28] MEDS: INSULIN GLARGINE 100 UNIT/ML SUBCUT SCH (10:06)
[2020-11-28] MEDS: ENOXAPARIN 40 MG/0.4 ML SYRINGE SUBCUT SCH (10:07)
[2020-11-28] MEDS: ASPIRIN 325 MG TABLET PO SCH (10:08)
[2020-11-28] MEDS: GABAPENTIN 400 MG CAPSULE PO SCH (10:08)
[2020-11-28] MEDS: rOPINIRole 0.25 MG TABLET PO SCH (10:08)
[2020-11-28] MEDS: DILTIAZEM CD 120 MG CAPSULE PO SCH (10:09)
[2020-11-28] MEDS: METOPROLOL TARTRATE 25 MG TABLET PO SCH (10:09)
[2020-11-28] MEDS: allopurinoL 300 MG TABLET PO SCH (10:09)
[2020-11-28] MEDS: BUDESONIDE/FORMOTEROL 160-4.5 INHALER 6 GM INH SCH (10:10)
[2020-11-28] MEDS: DULoxetine 20 MG CAPSULE PO SCH (10:10)
== END 2020-11-28 11:40 | disposition home or self-care (01) | DRG 202 ==
LOC: N.ED 21:07 → N.EDINP 11-26 01:31 → N.TELEN 11-26 02:01
PROVIDERS: ADMIT Internal Medicine; ATTEND Internal Medicine

== ENCOUNTER 2020-12-25 18:47 | Observation (INO) ==
[2020-12-25] MEDS ORDERED: SODIUM CHLORIDE 0.9% 1,000 ML IV STA ×2 (19:33→19:45)
[2020-12-25 21:00] LABS: Basophils % 0.3 % (0.0-0.8); Hematocrit 37.6 VOL% (35.7-47.0); Hemoglobin 12.1 GM/DL (12.0-16.0); Immature Granulocytes % 0.6 %; Immature Granulocytes Absolute 0.07 #; Lymphocytes # 3.7 10*3/uL (1.4-4.0); Lymphocytes % 34.3 % (21.3-54.2); Mean Corpuscular HGB Conc 32.2 GM/DL (32-36); Mean Corpuscular Volume 101.3 FL (87-102); Mean Platelet Volume 10.7 FL (9.6-12.0); Monocytes % 7.9 % (1.7-12.7); NRBC # 0.04 10*3/uL; Neutrophils % 56.9 % (38.7-73.9); Platelet Count 479 T/CUMM (130-400); Red Blood Count 3.71 MC/CUMM (3.8-5.5); Red Cell Distribution Width 17.9 % (9.3-17.3); White Blood Count 10.8 T/CUMM (4-12)
[2020-12-25 21:18] LABS: PT Patient Result 11.2 SECS (10.5-12.0); Partial Thromboplastin Time 22.9 SECS (23.8-32.1)
[2020-12-25 21:21] LABS: Alanine Aminotransferase 129 U/L (13-56); Albumin 3.6 G/DL (3.4-5.0); Alkaline Phosphatase 267 U/L (45-117); Aspartate Amino Transferase 217 U/L (0-37); Blood Urea Nitrogen 7 MG/DL (7-18); Calcium 8.9 MG/DL (8.5-10.1); Carbon Dioxide 29 MMOL/L (21-32); Estimated Glom Filtration Rate 102 ML/MIN; Glucose 336 MG/DL (74-106); Osmolality,Calculated 289.4 MOS/KG (273-304); Potassium 3.6 MMOL/L (3.5-5.1); Sodium 140 MMOL/L (136-145); Total Protein 7.7 G/DL (6.4-8.2)
[2020-12-25 21:31] LABS: Lactic Acid 3.8 MMOL/L (0.4-2.0)
[2020-12-25 21:49] LABS: Bilirubin,Urine Negative (Negative); Blood, Urine Negative (Negative); Glucose,Urine (UA) >=500 mg/dL (Negative); Ketones,Urine Negative (Negative); Nitrite,Urine Negative (Negative); Protein,Urine 100 MG/DL; RBC,Urine 2 /HPF (0-4); Squamous Epithelial Cell,Urine Occasional /HPF (0-10); Urine Appearance CLEAR (Clear); Urine Color Yellow (Yellow); Urine Specific Gravity 1.016 (1.001-1.035); Urine Urobilinogen < 2.0 EU/DL (0.2-1.0)
[2020-12-25 22:07] LABS: Barbiturates Screen,Urine Negative (Negative); Benzodiazepines Screen,Urine Negative (Negative); Cannabinoid Screen,Urine Positive (Negative); Opiate Screen,Urine Negative (Negative); Phencyclidine Screen,Urine Negative (Negative)
[2020-12-25] MEDS ORDERED: DEXTROSE 50% 25 GM/50 ML VIAL IV PRN ×2 (23:10)
[2020-12-25] MEDS ORDERED: GLUCAGON 1 MG VIAL IM PRN (23:10)
[2020-12-25] MEDS ORDERED: ACETAMINOPHEN 325 MG TABLET PO PRN (23:10)
[2020-12-25] MEDS ORDERED: NITROGLYCERIN SL 0.4 MG TABLET SL PRN (23:13)
[2020-12-26] MEDS ORDERED: CLORAZEPATE 7.5 MG TABLET PO PRN (02:47)
[2020-12-26] MEDS: ONDANSETRON 4 MG/2 ML VIAL IV PRN ×2 (05:51→09:53)
[2020-12-26] MEDS ORDERED: LEVOTHYROXINE 50 MCG TABLET PO SCH (07:00)
[2020-12-26] MEDS ORDERED: INSULIN REGULAR 100 UNIT/ML SUBCUT SCH (07:30)
[2020-12-26 08:19] LABS: Basophils # 0.1 10*3/uL (0.0-0.2); Basophils % 0.6 % (0.0-0.8); Eosinophils % 0.2 % (0.00-10.9); Hematocrit 40.7 VOL% (35.7-47.0); Hemoglobin 12.9 GM/DL (12.0-16.0); Immature Granulocytes % 0.7 %; Immature Granulocytes Absolute 0.09 #; Lymphocytes % 16.3 % (21.3-54.2); Mean Corpuscular HGB Conc 31.7 GM/DL (32-36); Mean Platelet Volume 11.5 FL (9.6-12.0); Monocytes % 10.1 % (1.7-12.7); NRBC # 0.05 10*3/uL; Neutrophils % 72.1 % (38.7-73.9); Platelet Count 453 T/CUMM (130-400); Red Blood Count 3.99 MC/CUMM (3.8-5.5); Red Cell Distribution Width 18.2 % (9.3-17.3); White Blood Count 12.5 T/CUMM (4-12)
[2020-12-26] MEDS ORDERED: LORazepam 0.5 MG TABLET PO ONE (08:23)
[2020-12-26] MEDS ORDERED: FUROSEMIDE 40 MG/4 ML VIAL IV ONE (08:33)
[2020-12-26] MEDS ORDERED: LORazepam 1 MG TABLET PO ONE (08:33)
[2020-12-26 08:38] LABS: Albumin 3.8 G/DL (3.4-5.0); Calcium 9.3 MG/DL (8.5-10.1); Osmolality,Calculated 278.7 MOS/KG (273-304); Potassium 3.7 MMOL/L (3.5-5.1); Total Protein 7.9 G/DL (6.4-8.2)
[2020-12-26] MEDS ORDERED: DILTIAZEM CD 120 MG CAPSULE PO SCH (09:00)
[2020-12-26] MEDS ORDERED: FUROSEMIDE 40 MG TABLET PO SCH (09:00)
[2020-12-26] MEDS ORDERED: BUDESONIDE/FORMOTEROL 160-4.5 INHALER 6 GM INH SCH (09:00)
[2020-12-26] MEDS ORDERED: FERROUS SULFATE 325 MG TABLET PO SCH (09:00)
[2020-12-26] MEDS ORDERED: INFLUENZA VIRUS VACCINE 0.5 ML SYRINGE IM ONE (09:00)
[2020-12-26] MEDS ORDERED: GABAPENTIN 400 MG CAPSULE PO SCH (09:00)
[2020-12-26] MEDS ORDERED: POTASSIUM CHLORIDE 20 MEQ TABLET PO SCH (09:00)
[2020-12-26] MEDS ORDERED: ENOXAPARIN 40 MG/0.4 ML SYRINGE SUBCUT SCH (09:00)
[2020-12-26] MEDS ORDERED: METOPROLOL TARTRATE 50 MG TABLET PO SCH (09:00)
[2020-12-26] MEDS ORDERED: LOSARTAN 50 MG TABLET PO SCH (09:08)
[2020-12-26 09:48] VITALS: BP 181/126
[2020-12-26] MEDS ORDERED: FUROSEMIDE 40 MG/4 ML VIAL IV SCH (16:00)
[2020-12-26] MEDS ORDERED: METHOCARBAMOL 750 MG TABLET PO SCH (21:00)
[2020-12-27] MEDS ORDERED: ERGOCALCIFEROL 50,000 UNIT CAPSULE PO SCH (09:00)
== END 2020-12-26 10:49 | disposition home or self-care (01) ==
LOC: N.ED 18:47 → N.EDINP 18:47 → SUATTDRO 22:51 → N.TELES 12-26 02:37
PROVIDERS: ADMIT Internal Medicine; ATTEND Internal Medicine